=== PATIENT | female | born 1995 | race Caucasian/White ===

== ENCOUNTER 2017-09-08 10:10 | Emergency (ER) | payer MEDICAID ==
[2017-09-08 10:18] VITALS: BP 124/79
--- NOTE | 2017-09-08 10:53 | XRAY Report ---
EXAM: LEFT WRIST RADIOGRAPHY EXAM DATE: 09/08/2017 10:38 AM. CLINICAL HISTORY: Injury. COMPARISON: None. TECHNIQUE: 4 views. FINDINGS: Bones: No fractures or bone lesions. Joints: Normal. No subluxations. Soft Tissues: No soft tissue swelling. IMPRESSION: Negative wrist radiography. [facility] Referring Provider Line: [phone] SITE ID: [id number]
[2017-09-08] MEDS ORDERED: IBUPROFEN 600 MG TABLET PO STA (11:32)
--- NOTE | 2017-09-08 11:35 | ED Physician Documentation ---
PD HPI UPPER EXT INJURY - Stated complaint Stated Complaint: LEFT WRIST/GLF - Chief complaint Chief Complaint: Ext Problem - History obtained from History obtained from: Patient - History of Present Illness Location: Left, Wrist Type of injury: Fall Where injury occurred: Home Timing - onset: Yesterday Worsened by: Moving, Palpating, Other (Carrying her .) Associated symptoms: No: Weakness, Numbness, Swelling Similar symptoms before: Has not had sx before - Additonal information Additional information: The patient is a 22-year-old female who tripped over a baby's toy yesterday landing on outstretched left hand. She has had pain in her left wrist since that time, exacerbated when she picks up her baby. She denies any other injuries. She is right-hand dominant. Review of Systems Constitutional: denies: Fever Cardiac: denies: Chest pain / pressure Respiratory: denies: Dyspnea, Cough GI: denies: Nausea, Vomiting Skin: denies: Rash, Abrasion (s) Musculoskeletal: reports: Joint pain (Left wrist). 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 - Present Medications Home Medications: Ambulatory Orders Medication Instructions Recorded Confirmed Albuterol Sulfate [Proair Hfa 09/08/17 Inhaler] Bcp 09/08/17 Omeprazole 09/08/17 - Allergies Allergies/Adverse Reactions: Allergies Allergy/AdvReac Type Severity Reaction Status Date / Time amoxicillin Allergy Rash Verified 09/08/17 10:18 latex Allergy Rash Verified 09/08/17 10:18 lavender (Lavandula Allergy Unknown Verified 09/08/17 10:18 angustifolia) - Social History Does the pt smoke?: No Smoking Status: Never smoker PD ED PE NORMAL - Vitals Vital signs reviewed: Yes (normal) - General General: Alert and oriented X 3, Well developed/nourished - HEENT HEENT: Atraumatic - Neck Neck: No bony TTP - Respiratory Respiratory: No respiratory distress - Back Back: No spinal TTP - Derm Derm: No rash - Extremities Extremities: Other (Tenderness to palpation across the dorsum of the wrist both radially and ulnarly. No swelling, deformity, or ecchymosis. She is able to flex and extend as well as supinate and pronate without difficulty. Distal neurovascular is intact.) - Neuro Neuro: Alert and oriented X 3, No motor deficit, No sensory deficit Results - Vitals Vitals: Oxygen O2 Source Room air - Rads (name of study) left wrist Radiology: Prelim report reviewed, EMP read contemporaneously, See rad report ( No radiographic abnormality.) PD MEDICAL DECISION MAKING - ED course Complexity details: reviewed results, re-evaluated patient, considered differential, d/w patient, d/w family ED course: The patient's presentation is most consistent with left wrist sprain. There is no radiographic evidence of fracture or dislocation on x-ray. Treatment in the emergency department included administration of ibuprofen, 600 mg orally. I discussed with the patient and her family the expected course of injury, symptomatic treatment and outpatient follow-up, as well as potentially worrisome signs or symptoms that should prompt reevaluation in the emergency department. Departure - Departure Disposition: 01 Home, Self Care Clinical Impression: Left wrist sprain Qualifiers: Encounter type: initial encounter Qualified Code(s): S63.502A - Unspecified sprain of left wrist, initial encounter Condition: Stable Instructions: ED Sprain Wrist Follow-Up: Derek Reese MD [Primary Care Provider] - Comments: You can use Tylenol or ibuprofen if needed for discomfort. Let pain be your guide to activity level. Follow up with your primary physician if not improving within 1-2 weeks. Return to the emergency department if you develop increasing pain, or otherwise worsening symptoms. Discharge Date/Time: 09/08/17 11:52
== END 2017-09-08 11:52 | disposition home or self-care (01) ==
LOC: ED 10:10
DX: S63.502A Unspecified sprain of left wrist, initial encounter (principal); W18.09XA Striking against other object with subsequent fall, initial encounter; Y92.009 Unspecified place in unspecified non-institutional (private) residence as the place of occurrence of the external cause
CPT/HCPCS: 73110; 99282; 99283; A9270

== ENCOUNTER 2017-09-27 19:30 | Emergency (ER) | payer MEDICARE, MEDICAID ==
[2017-09-27 19:44] VITALS: BP 122/79
--- NOTE | 2017-09-27 20:02 | ED Physician Documentation ---
PD HPI Fall - Stated complaint Stated Complaint: FELL LT HAND/LEG - Chief complaint Chief Complaint: Ext Problem - History obtained from History obtained from: Patient - History of Present Illness Mechanism of injury: Tripped (over an object and landed onto left wrist, and struck left ankle on the object and twisted ankle as well. Pain with walking and pain with ROM of the wrist.) Fall distance: Standing position Where injury occurred: Home Injury(ies) location: Left Uppper Extremity (wrist), Left Lower Extremity (ankle ). 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 - Present Medications Home Medications: Ambulatory Orders Medication Instructions Recorded Confirmed Albuterol Sulfate [Proair Hfa 2 puffs INH Q4H PRN 09/08/17 Inhaler] Bcp 09/08/17 Omeprazole 20 mg PO DAILY 09/08/17 - Allergies Allergies/Adverse Reactions: Allergies Allergy/AdvReac Type Severity Reaction Status Date / Time amoxicillin Allergy Rash Verified 09/27/17 19:38 latex Allergy Rash Verified 09/27/17 19:38 lavender (Lavandula Allergy Unknown Verified 09/27/17 19:38 angustifolia) - Social History Does the pt smoke?: No Smoking Status: Never smoker PD ED PE NORMAL - Vitals Vital signs reviewed: Yes - General General: Alert and oriented X 3, No acute distress, Well developed/nourished - HEENT HEENT: Atraumatic - Neck Neck: Supple, no meningeal sign, No bony TTP - Back Back: No spinal TTP - Derm Derm: Normal color, Warm and dry - Extremities Extremities: Other (left wrist with some tenderness ulnar side soft tissue. No obvius deformity. Left ankle tender anterior and lateral. Pain with inversion stress but no laxity. Achilles is not tender. ) - Neuro Neuro: No motor deficit, No sensory deficit Results - Vitals Vitals: Vital Signs - 24 hr 09/27/17 19:33 Temperature 36.0 C L Heart Rate 109 H Respiratory 16 Rate Blood Pressure 122/79 O2 Saturation 100 Oxygen O2 Source Room air - Rads (name of study) werist left Radiology: Prelim report reviewed (no fractures) left ankle Radiology: Prelim report reviewed (no fractures. ) Departure - Departure Disposition: 01 Home, Self Care Clinical Impression: Wrist contusion Qualifiers: Encounter type: initial encounter Laterality: left Qualified Code(s): S60.212A - Contusion of left wrist, initial encounter Ankle sprain Qualifiers: Encounter type: initial encounter Involved ligament of ankle: other ligament Laterality: left Qualified Code(s): S93.492A - Sprain of other ligament of left ankle, initial encounter Condition: Stable Record reviewed to determine appropriate education?: Yes Instructions: ED Sprain Ankle Follow-Up: Derek Reese MD [Primary Care Provider] - Comments: Your x-rays appear normal. Use the ankle brace to support the ankle when up and around for the next few days to week until it is feeling better. Gentle use of the hand and wrist as needed. Tylenol or ibuprofen if needed for pains. Discharge Date/Time: 09/27/17 20:44
[2017-09-27] MEDS ORDERED: IBUPROFEN 600 MG TABLET PO STA (20:07)
--- NOTE | 2017-09-27 20:40 | XRAY Report ---
EXAM: LEFT WRIST RADIOGRAPHY EXAM DATE: 09/27/2017 08:13 PM. CLINICAL HISTORY: Fell and struck wrist as fell. COMPARISON: None. TECHNIQUE: 3 views. FINDINGS: Bones: Normal. No fractures or bone lesions. Joints: Normal. No subluxations. Soft Tissues: Normal. No soft tissue swelling. IMPRESSION: Normal wrist radiography. [facility] Referring Provider Line: [phone] SITE ID: [id number]
--- NOTE | 2017-09-27 20:40 | XRAY Preliminary Report ---
Exam: XR WRIST 3 VIEW LT IMPRESSION: Normal wrist radiography. [facility] SITE ID: [id number]
--- NOTE | 2017-09-27 20:42 | XRAY Preliminary Report ---
Exam: XR ANKLE 3 VIEW LT IMPRESSION: Normal ankle radiography. [facility] SITE ID: [id number]
--- NOTE | 2017-09-27 20:42 | XRAY Report ---
EXAM: LEFT ANKLE RADIOGRAPHY EXAM DATE: 09/27/2017 08:27 PM. CLINICAL HISTORY: Fell and struck/twisted ankle. COMPARISON: None. TECHNIQUE: 3 views. FINDINGS: Bones: Normal. No fractures or bone lesions. Joints: Normal. No effusion. No subluxations. The ankle mortise is normally aligned. Soft Tissues: Normal. No soft tissue swelling. IMPRESSION: Normal ankle radiography. [facility] Referring Provider Line: [phone] SITE ID: [id number]
== END 2017-09-27 20:44 | disposition home or self-care (01) ==
LOC: ED 19:30
DX: S60.212A Contusion of left wrist, initial encounter (principal); S93.492A Sprain of other ligament of left ankle, initial encounter; W01.0XXA Fall on same level from slipping, tripping and stumbling without subsequent striking against object, initial encounter; Y92.009 Unspecified place in unspecified non-institutional (private) residence as the place of occurrence of the external cause; K21.9 Gastro-esophageal reflux disease without esophagitis
CPT/HCPCS: 73110; 73610; 99283; A9270

== ENCOUNTER 2019-06-07 11:07 | Emergency (ER) | payer MEDICARE, MEDICAID ==
--- NOTE | 2019-06-07 12:13 | ED Physician Documentation ---
History of Present Illness - Stated complaint Stated Complaint: LT ARM PX - Chief complaint Chief Complaint: Ext Problem - Additonal information Additional information: This is a 24-year-old female who presents with left arm discomfort from a dog jumping on her. Patient states that they found a dog in the yard which they think is 1 of their neighbor's dog that ran away. Letter into their house and is very friendly dog but is also fairly large and while playing with it its pause and body landed on her left arm last night. Patient has been sore in the forearm and wrist since then. She states that she broke her wrist in the past so the arm always has a little bit of soreness/weakness. The dog did not bite her. 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 - Present Medications Home Medications: Ambulatory Orders Medication Instructions Recorded Confirmed Albuterol Sulfate [Proair Hfa 2 puffs INH Q4H PRN 09/08/17 Inhaler] Bcp 09/08/17 Omeprazole 20 mg PO DAILY 09/08/17 - Allergies Allergies/Adverse Reactions: Allergies Allergy/AdvReac Type Severity Reaction Status Date / Time amoxicillin Allergy Rash Verified 09/27/17 19:38 latex Allergy Rash Verified 09/27/17 19:38 lavender (Lavandula Allergy Unknown Verified 09/27/17 19:38 angustifolia) - Social History Does the pt smoke?: No Smoking Status: Never smoker Does the pt drink ETOH?: No Does the pt have substance abuse?: No PD ED PE NORMAL - Vitals Vital signs reviewed: Yes - General General: Alert and oriented X 3 - HEENT HEENT: Atraumatic - Neck Neck: Supple, no meningeal sign - Respiratory Respiratory: No respiratory distress - Abdomen Abdomen: Non distended - Extremities Extremities: Other (There is slight bruising and edema over the left distal radius and ulna, there is also some mild tenderness of the proximal forearm. Patient has good range of motion of her wrist and fingers with some mild discomfort. Sensation to light touch is intact. Capillary refill is brisk over all digits. There is no scaphoid tenderness. Upper arm is non-tender. No gross deformity) Results - Vitals Vitals: Vital Signs - 24 hr 06/07/19 11:14 Temperature 36.7 C Heart Rate 86 Respiratory 18 Rate Blood Pressure 133/83 H O2 Saturation 98 Oxygen O2 Source Room air - Rads (name of study) XR forearm L and wrist L Radiology: Other (No acute osseous abnormality) PD MEDICAL DECISION MAKING - ED course ED course: Patient presents with pain in her left arm after her dog jumped on her arm. She is neurovascularly intact. She was not bitten, she is not at risk for rabies exposure. She has good range of motion of her elbow and her wrist, she does have an area of bruising which likely represents a contusion. X-rays were obtained and show no fracture or dislocation. I discussed this result with the patient, recommended supportive care, and PCP follow-up if needed for continued symptoms. Also discussed being safe around dogs, particularly ones that she does not know. Patient agreed this plan was discharged home Departure - Departure Disposition: 01 Home, Self Care Clinical Impression: Contusion Qualifiers: Encounter type: initial encounter Contusion area: forearm Laterality: left Qualified Code(s): S50.12XA - Contusion of left forearm, initial encounter Condition: Good Instructions: ED Contusion Upper Ext Comments: You were seen today for some pain in your left arm. Your x-ray does not show signs of broken bones. It is likely that you bruised your forearm and potentially sprained your wrist. You may take Tylenol and ibuprofen, please rest ice and elevate your arm. If you have persistent pain which is not improving in 1 week, follow-up with your primary care provider for reexamination and consideration of repeat x-rays, occasionally there are very small fractures that are missed on the initial x-rays.
[2019-06-07] MEDS ORDERED: IBUPROFEN 600 MG TABLET PO STA (12:14)
[2019-06-07] MEDS ORDERED: ACETAMINOPHEN 325 MG TABLET PO STA (12:14)
--- NOTE | 2019-06-07 12:59 | XRAY Report ---
Reason: Pain from large dog jumping on her Procedure Date: 06/07/2019 Accession Number: [id number] / [id number] Procedure: XR - Wrist 2 View LT CPT Code: Final Report FULL RESULT: EXAM: LEFT WRIST RADIOGRAPHY EXAM DATE: 06/07/2019 12:34 PM. CLINICAL HISTORY: Pain from large dog jumping on her. COMPARISON: WRIST 3 VIEW LT 09/27/2017 8:13 PM. TECHNIQUE: 2 views. FINDINGS: Bones: Normal. No fractures or bone lesions. Joints: Normal. No subluxations. Soft Tissues: Normal. No soft tissue swelling. IMPRESSION: Normal wrist radiography. [facility]
--- NOTE | 2019-06-07 13:03 | XRAY Report ---
Reason: Pain from large dog jumping on arm Procedure Date: 06/07/2019 Accession Number: [id number] / [id number] Procedure: XR - Forearm LT CPT Code: Final Report FULL RESULT: EXAM: LEFT FOREARM RADIOGRAPHY EXAM DATE: 06/07/2019 12:34 PM. CLINICAL HISTORY: Pain from large dog jumping on arm. COMPARISON: XR FOREARM 2 VIEW 11/17/2010 3:41 PM WRIST 3 VIEW LT 09/27/2017 8:13 PM. TECHNIQUE: 2 views. FINDINGS: Bones: No fracture or bony destruction. Joints: Normal. No effusions or subluxations in the visualized wrist or elbow joints. Soft Tissues: Normal. No soft tissue swelling. IMPRESSION: Negative left forearm [facility]
[2019-06-07 13:17] VITALS: BP 134/82
== END 2019-06-07 13:30 | disposition home or self-care (01) ==
LOC: ED 11:07
DX: S50.12XA Contusion of left forearm, initial encounter (principal); W54.1XXA Struck by dog, initial encounter; Y93.89 Activity, other specified; Y92.009 Unspecified place in unspecified non-institutional (private) residence as the place of occurrence of the external cause
CPT/HCPCS: 73090; 73100; 99282; 99283; A9270

== ENCOUNTER 2020-09-25 12:54 | Outpatient (CLI) | payer MEDICARE, MEDICAID | END 2020-09-25 12:55 | disposition short-term general hospital (02) | LOC: EMS 12:54 | DX: O99.891 Other specified diseases and conditions complicating pregnancy (principal); R10.9 Unspecified abdominal pain; Z3A.30 30 weeks gestation of pregnancy | CPT/HCPCS: A0425; A0429 ==

== ENCOUNTER 2022-01-31 11:47 | Emergency (ER) | payer MEDICARE, MEDICAID ==
[2022-01-31 11:56] VITALS: BP 146/79
--- NOTE | 2022-01-31 12:15 | XRAY Report ---
PROCEDURE: Forearm LT INDICATIONS: Trauma TECHNIQUE: 2 views of the forearm were acquired. COMPARISON: None FINDINGS: Bones: No fractures or dislocations. No suspicious bony lesions. Soft tissues: No suspicious soft tissue calcifications or masses. IMPRESSION: No visualized acute fracture or dislocation. However, occult injury cannot be excluded. Recommend marj rt interval imaging follow-up in 7-10 days as clinically indicated for additional evaluation. Reviewed by: Lilia Meehan MD on 01/31/2022 12:14 PM PDT Approved by: Lilia Meehan MD on 01/31/2022 12:14 PM PDT Station ID: [id number]
[2022-01-31] MEDS ORDERED: IBUPROFEN 600 MG TABLET PO STA (12:21)
--- NOTE | 2022-01-31 12:24 | XRAY Report ---
PROCEDURE: Elbow 3 View LT INDICATIONS: Trauma TECHNIQUE: 3 views of the elbow were acquired. COMPARISON: X-ray forearm 06/07/2019 FINDINGS: Bones: No fractures or dislocations. No suspicious bony lesions. Soft tissues: No elbow joint effusion. No suspicious soft tissue calcifications. IMPRESSION: No visualized acute fracture or dislocation. However, occult injury cannot be excluded. Recommend marj rt interval imaging follow-up in 7-10 days as clinically indicated for additional evaluation. Reviewed by: Lilia Meehan MD on 01/31/2022 12:22 PM PDT Approved by: Lilia Meehan MD on 01/31/2022 12:22 PM PDT Station ID: [id number]
--- NOTE | 2022-01-31 12:24 | ED Physician Documentation ---
History of Present Illness - Stated complaint Stated Complaint: LT ARM PAIN - Chief complaint Chief Complaint: Trauma Ext - History obtained from History obtained from: Patient - History of Present Illness Timing: Yesterday Pain level max: 6 Pain level now: 5 - Additonal information Additional information: Patient is a 26-year-old female with a history of cerebral palsy. She presents to the emergency department stating she tripped and hit her forearm/elbow on her child's toy box yesterday. Has continued pain today. Has not taken anything for the pain. No numbness or tingling. No head, neck, back pain. No loss of consciousness. Worse with movement and palpation, nothing makes it better. 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 - Present Medications Home Medications: Ambulatory Orders Medication Instructions Recorded Confirmed Albuterol Sulfate [Proair Hfa 2 puffs INH Q4H PRN 09/08/17 Inhaler] Bcp 09/08/17 Omeprazole 20 mg PO DAILY 09/08/17 - Allergies Allergies/Adverse Reactions: Allergies Allergy/AdvReac Type Severity Reaction Status Date / Time amoxicillin Allergy Rash Verified 01/31/22 11:56 latex Allergy Rash Verified 01/31/22 11:56 lavender (Lavandula Allergy Unknown Verified 01/31/22 11:56 angustifolia) - Social History Does the pt smoke?: No Smoking Status: Never smoker Does the pt drink ETOH?: No Does the pt have substance abuse?: No PD ED PE NORMAL - Vitals Vital signs reviewed: Yes - General General: Alert and oriented X 3, No acute distress - HEENT HEENT: Moist mucous membranes - Neck Neck: Supple, no meningeal sign - Derm Derm: Warm and dry - Extremities Extremities: Other (L elbow - Full range of motion of the elbow, No pain with supination and pronation of the hand. She does have tenderness along the distal ulna. Mild contusion and ecchymosis here. Neurovascular intact. No bony tenderness otherwise.) - Neuro Neuro: Alert and oriented X 3 Results - Vitals Vitals: Vital Signs - 24 hr 01/31/22 11:53 Temperature 36.8 C Heart Rate 97 Respiratory 18 Rate Blood Pressure 146/79 H O2 Saturation 98 Oxygen O2 Source Room air - Rads (name of study) Left elbow xray Radiology: Final report received, EMP read contemporaneously, See rad report Left forearm x-ray Radiology: Final report received, EMP read contemporaneously, See rad report PD MEDICAL DECISION MAKING - ED course Complexity details: reviewed results, considered differential, d/w patient ED course: No acute findings on x-ray. Patient is using the arm freely. We will utilize Motrin and Tylenol at home. She does request a sling. Patient was informed not to use this for more than 2 to 3 days. Encouraged early range of motion of the elbow. Neurovascular intact. Patient counseled regarding signs and symptoms for which I believe and urgent re-evaluation would be necessary. Patient with good understanding of and agreement to plan and is comfortable going home at this time This document was made in part using voice recognition software. While efforts are made to proofread this document, sound alike and grammatical errors may occur. Departure - Departure Disposition: 01 Home, Self Care Clinical Impression: Contusion of elbow, left Qualifiers: Encounter type: initial encounter Qualified Code(s): S50.02XA - Contusion of left elbow, initial encounter Condition: Good Instructions: ED Contusion Elbow Follow-Up: Your,doctor in 1 week [Other] Comments: Do not wear the sling for longer than 2 to 3 days. Continue to gently move your elbow. This will improve over the next few days. You can use Motrin or Tylenol as needed for pain at home. Your x-rays do not show any fractures today. If you are still having pain in 1 week, please follow-up with your doctor for repeat examination
--- OUTSIDE RECORDS SUMMARY | 2022-01-31 12:35 | EXTERNAL MEDICAL SUMMARY RPT | Continuity of Care Document ---
:1995 Author Organization [facility] Address [address] [place] [address] Phone Allergies and Intolerances date description facility type (no date) Mild [facility] (unknown) (no date) NSAIDS (Non-Steroidal Anti-Inflamma [facility] (unknown) (no date) amoxicillin [facility] (unknown) (no date) lactose [facility] (unknown) (no date) latex [facility] (unknown) (no date) lavender (Lavandula angustifolia) [facility] (unknown) Encounters No information. Functional Status No information. Immunizations No information. Medications No information. Problems No information. Procedures date description facility [id number] General Physician [facility] Results/Labs test date author facility value unit interpret ation Result panel 1 (unknown) (no (unknown) (unknown) (no value) (units (unk nown) date) unknown) (unknown) (no (unknown) (unknown) Date of Service: (units (unknown) date) 11/15/21 unknown) (unknown) (no (unknown) (unknown) (no value) (units (unk nown) date) unknown) (unknown) (no (unknown) (unknown) 1 tab PO BID Qty: (units (unknown) date) 14 0RF unknown) (unknown) (no (unknown) (unknown) 1 tab PO DAILY (units (unknown) date) Qty: 90 4RF unknown) (unknown) (no (unknown) (unknown) 10 mg PO BID PRN (units (unknown) date) (Reason: Allergy unknown) Symptoms) 0RF (unknown) (no (unknown) (unknown) 2 puff INHALATION (units (unknown) date) Q4-6H 0RF unknown) (unknown) (no (unknown) (unknown) 325 mg PO DAILY (units (unknown) date) Qty: 30 0RF unknown) (unknown) (no (unknown) (unknown) 40 mg PO DAILY (units (unknown) date) Qty: 30 5RF unknown) (unknown) (no (unknown) (unknown) 5 mg PO Q4HR PRN (units (unknown) date) (Reason: Pain, unknown) Moderate (4-6)) Qty: 30 0RF (unknown) (no (unknown) (unknown) Allergies (units (unkn own) date) unknown) (unknown) (no (unknown) (unknown) Cancer (units (unkno wn) date) unknown) (unknown) (no (unknown) (unknown) Chronic (units (unkno wn) date) obstructive unknown) pulmonary disease, unspecified COPD type (unknown) (no (unknown) (unknown) Developmental (units ( unknown) date) delay unknown) (unknown) (no (unknown) (unknown) Emergency Report (units (unknown) date) unknown) (unknown) (no (unknown) (unknown) Essential (units (unkn own) date) hypertension unknown) (unknown) (no (unknown) (unknown) Family (units (unkno wn) date) estrangement unknown) (unknown) (no (unknown) (unknown) GI upset (units (unkno wn) date) unknown) (unknown) (no (unknown) (unknown) Home Medications (units (unknown) date) unknown) (unknown) (no (unknown) (unknown) [facility] (units (unknown) date) [address] unknown) [place] [address] (unknown) (no (unknown) (unknown) Label Comments: (units (unknown) date) unknown) (unknown) (no (unknown) (unknown) Mental health (units ( unknown) date) problem unknown) (unknown) (no (unknown) (unknown) Oxygen dependent (units (unknown) date) unknown) (unknown) (no (unknown) (unknown) Previous Rx's (units ( unknown) date) unknown) (unknown) (no (unknown) (unknown) Rx Instructions: (units (unknown) date) unknown) (unknown) (no (unknown) (unknown) Sleep apnea, (units (u nknown) date) unspecified type unknown) (unknown) (no (unknown) (unknown) Stop: 11/15/21 (units (unknown) date) 13:25 unknown) (unknown) (no (unknown) (unknown) Suicide attempt (units (unknown) date) unknown) (unknown) (no (unknown) (unknown) Take one tablet by (units (unknown) date) mouth daily. unknown) (unknown) (no (unknown) (unknown) Vital Signs - 8 hr (units (unknown) date) unknown) (unknown) (no (unknown) (unknown) patient has not (units (unknown) date) taken med unknown) (unknown) (no (unknown) (unknown) (no value) (units (unk nown) date) unknown) (unknown) (no (unknown) (unknown) albuterol sulfate (units (unknown) date) [Proventil HFA] 90 unknown) mcg/actuation HFA aerosol inhaler (unknown) (no (unknown) (unknown) ferrous sulfate (units (unknown) date) 325 mg (65 mg iron) unknown) Tablet (unknown) (no (unknown) (unknown) loratadine 10 mg (units (unknown) date) tablet unknown) (unknown) (no (unknown) (unknown) omeprazole 40 mg (units (unknown) date) capsule,delayed unknown) release(DR/EC) (unknown) (no (unknown) (unknown) oxycodone 5 mg (units (unknown) date) tablet unknown) (unknown) (no (unknown) (unknown) prenat.vits,sergey,mi (units (unknown) date) [id number] unknown) Tablet (unknown) (no (unknown) (unknown) sulfamethoxazole-t (units (unknown) date) rimethoprim 800-160 unknown) mg tablet (unknown) (no (unknown) (unknown) 11/15/21 (units (o wn) date) unknown) (unknown) (no (unknown) (unknown) Medication (units (k n) date) Instructions unknown) Recorded (unknown) (no (unknown) (unknown) Medication (units (k n) date) Instructions unknown) Recorded Confirmed (unknown) (no (unknown) (unknown) 11:24 (units (o wn) date) unknown) (unknown) (no (unknown) (unknown) [id number] (units (unkno wn) date) unknown) (unknown) (no (unknown) (unknown) ANTI-INFLAMMA] (units (unknown) date) unknown) (unknown) (no (unknown) (unknown) Acetaminophen (units ( unknown) date) (Acetaminophen 325 unknown) Mg Tablet) 975 mg PO NOW ONE (unknown) (no (unknown) (unknown) Acute blood loss (units (unknown) date) as cause of unknown) postoperative anemia () (unknown) (no (unknown) (unknown) Age/Sex: 26 / F (units (unknown) date) unknown) (unknown) (no (unknown) (unknown) Allergy/AdvReac (units (unknown) date) Type Severity unknown) Reaction Status Date / Time (unknown) (no (unknown) (unknown) Anesthesia (units (unk nown) date) unknown) (unknown) (no (unknown) (unknown) Anti-Inflamma (units ( unknown) date) unknown) (unknown) (no (unknown) (unknown) Asthma (2000) (units ( unknown) date) unknown) (unknown) (no (unknown) (unknown) Biliary colic (units ( unknown) date) () unknown) (unknown) (no (unknown) (unknown) Blood Pressure (units (unknown) date) 156/76 H 11/15/21 unknown) 11:24 (unknown) (no (unknown) (unknown) Blood Pressure (units (unknown) date) 156/76 H unknown) (unknown) (no (unknown) (unknown) Cerebral palsy (units (unknown) date) (1995) unknown) (unknown) (no (unknown) (unknown) Chief complaint: (units (unknown) date) Eye Problems unknown) (unknown) (no (unknown) (unknown) Cholecystectomy (units (unknown) date) planned () unknown) (unknown) (no (unknown) (unknown) Cholelithiasis (units (unknown) date) () unknown) (unknown) (no (unknown) (unknown) Contusion of left (units (unknown) date) arm unknown) (unknown) (no (unknown) (unknown) Course (units (unkno wn) date) unknown) (unknown) (no (unknown) (unknown) : 1995 (units (unknown) date) Acct:[id number] unknown) (unknown) (no (unknown) (unknown) Delivery by (units (un known) date) section of unknown) full-term (-06/27/17) (unknown) (no (unknown) (unknown) Departure (units (unkn own) date) unknown) (unknown) (no (unknown) (unknown) Discharge Plan (units (unknown) date) unknown) (unknown) (no (unknown) (unknown) Discontinued (units (u nknown) date) Medications unknown) (unknown) (no (unknown) (unknown) ER Physician: (units ( unknown) date) Sam,Hyma P.A-C unknown) (unknown) (no (unknown) (unknown) Ear pain () (units (unknown) date) unknown) (unknown) (no (unknown) (unknown) Esophagitis (units (un known) date) (06/08/15) unknown) (unknown) (no (unknown) (unknown) Exam (units (unkno wn) date) unknown) (unknown) (no (unknown) (unknown) Family History (units (unknown) date) (Reviewed 11/01/20 unknown) @ 00:23 by Millicent Dorman CNM) (unknown) (no (unknown) (unknown) Father Age: 53 (units (unknown) date) Cerebral palsy, unknown) unspecified type (unknown) (no (unknown) (unknown) Finger fracture (units (unknown) date) () unknown) (unknown) (no (unknown) (unknown) Finger fracture, (units (unknown) date) left () unknown) (unknown) (no (unknown) (unknown) General (units (unkno wn) date) unknown) (unknown) (no (unknown) (unknown) Grandfather (units (un known) date) Cerebral unknown) palsy, unspecified type (unknown) (no (unknown) (unknown) Grandfather Age: (units (unknown) date) 78 Emphysema, unknown) unspecified (unknown) (no (unknown) (unknown) Grandmother (units (un known) date) Diabetes unknown) mellitus (unknown) (no (unknown) (unknown) Grandmother (units (un known) date) Family unknown) estrangement (unknown) (no (unknown) (unknown) HPI - Eye Problem (units (unknown) date) unknown) (unknown) (no (unknown) (unknown) History of (units (unk nown) date) unknown) () (unknown) (no (unknown) (unknown) History of (units (unk nown) date) cholecystectomy unknown) (-2017) (unknown) (no (unknown) (unknown) History of (units (unk nown) date) placement of ear unknown) tubes (unknown) (no (unknown) (unknown) History of third (units (unknown) date) molar tooth unknown) extraction (2014) (unknown) (no (unknown) (unknown) Derek Reese MD (units (unknown) date) [Primary Care unknown) Provider] - (unknown) (no (unknown) (unknown) Initial Vital (units ( unknown) date) Signs unknown) (unknown) (no (unknown) (unknown) Initial Vital (units ( unknown) date) Signs: unknown) (unknown) (no (unknown) (unknown) Left wrist sprain (units (unknown) date) () unknown) (unknown) (no (unknown) (unknown) Medical History (units (unknown) date) (Reviewed 11/01/20 unknown) @ 00:23 by Millicent Dorman CNM) (unknown) (no (unknown) (unknown) Mode of arrival: (units (unknown) date) Ambulatory unknown) (unknown) (no (unknown) (unknown) Mother Age: 47 (units (unknown) date) Essential unknown) hypertension (unknown) (no (unknown) (unknown) NSAIDS (units (unkno wn) date) (Non-Steroidal unknown) Allergy Mild Hives Verified 10/28/20 13:50 (unknown) (no (unknown) (unknown) No Action (units (unkn own) date) unknown) (unknown) (no (unknown) (unknown) Ordered: (units (unkno wn) date) unknown) (unknown) (no (unknown) (unknown) Orders (units (unkno wn) date) unknown) (unknown) (no (unknown) (unknown) Patient History (units (unknown) date) unknown) (unknown) (no (unknown) (unknown) Patient: (units (unkno wn) date) Jamari Simmons unknown) MR#: [id number] (unknown) (no (unknown) (unknown) Prescriptions: (units (unknown) date) unknown) (unknown) (no (unknown) (unknown) Pulse Oximetry (units (unknown) date) 100 11/15/21 unknown) 11:24 (unknown) (no (unknown) (unknown) Pulse Oximetry 100 (units (unknown) date) unknown) (unknown) (no (unknown) (unknown) Pulse Rate 100 H (units (unknown) date) 11/15/21 11:24 unknown) (unknown) (no (unknown) (unknown) Pulse Rate 100 H (units (unknown) date) unknown) (unknown) (no (unknown) (unknown) RLS (restless legs (units (unknown) date) syndrome) (2013) unknown) (unknown) (no (unknown) (unknown) Referrals: (units (unk nown) date) unknown) (unknown) (no (unknown) (unknown) Reflux gastritis (units (unknown) date) (-2016) unknown) (unknown) (no (unknown) (unknown) Related Data (units (u nknown) date) unknown) (unknown) (no (unknown) (unknown) Respiratory Rate (units (unknown) date) 18 11/15/21 11:24 unknown) (unknown) (no (unknown) (unknown) Respiratory Rate (units (unknown) date) 18 unknown) (unknown) (no (unknown) (unknown) Rib sprain (units (unk nown) date) unknown) (unknown) (no (unknown) (unknown) Shoulder pain (units ( unknown) date) (2012) unknown) (unknown) (no (unknown) (unknown) Signed By: (units (unk nown) date) unknown) (unknown) (no (unknown) (unknown) Sister Age: 26 (units (unknown) date) Cerebral palsy, unknown) unspecified type (unknown) (no (unknown) (unknown) Smoking Status: (units (unknown) date) Never smoker unknown) (unknown) (no (unknown) (unknown) Smoking Status: (units (unknown) date) Never smoker unknown) (unknown) (no (unknown) (unknown) Social History (units (unknown) date) (Reviewed 11/01/20 unknown) @ 00:23 by Millicent Elliott CNM) (unknown) (no (unknown) (unknown) Source: patient (units (unknown) date) unknown) (unknown) (no (unknown) (unknown) Sprain of left (units (unknown) date) hand unknown) (unknown) (no (unknown) (unknown) Stated complaint: (units (unknown) date) Pain in left eye unknown) (unknown) (no (unknown) (unknown) Substance Use (units ( unknown) date) Type: does not use unknown) (unknown) (no (unknown) (unknown) Surgical History (units (unknown) date) (Reviewed 11/01/20 unknown) @ 00:23 by Millicent Dorman CNM) (unknown) (no (unknown) (unknown) Time Seen by (units (u nknown) date) Provider: 11/15/21 unknown) 12:55 (unknown) (no (unknown) (unknown) Upper respiratory (units (unknown) date) infection unknown) () (unknown) (no (unknown) (unknown) Vital Signs (units (un known) date) unknown) (unknown) (no (unknown) (unknown) Vital signs: (units (u nknown) date) unknown) (unknown) (no (unknown) (unknown) Vomiting (units (unkno wn) date) unknown) (unknown) (no (unknown) (unknown) [LAVENDER] (units (unk nown) date) unknown) (unknown) (no (unknown) (unknown) [NSAIDS (units (unkno wn) date) (NON-STEROIDAL unknown) (unknown) (no (unknown) (unknown) aerosol inhaler (units (unknown) date) (Proventil HFA) unknown) (unknown) (no (unknown) (unknown) albuterol sulfate (units (unknown) date) 90 mcg/actuation 2 unknown) puff INHALATION Q4-6H 11/12/20 11/12/20 (unknown) (no (unknown) (unknown) alcohol intake (units (unknown) date) frequency: 0-2 unknown) drinks per day (unknown) (no (unknown) (unknown) alcohol intake: (units (unknown) date) never unknown) (unknown) (no (unknown) (unknown) amoxicillin (units (un known) date) Allergy unknown) Intermediate RASH Verified 10/28/20 13:50 (unknown) (no (unknown) (unknown) angustifolia) (units ( unknown) date) unknown) (unknown) (no (unknown) (unknown) ferrous sulfate (units (unknown) date) 325 mg (65 mg 325 unknown) mg PO DAILY #30 tab 11/13/20 (unknown) (no (unknown) (unknown) household members: (units (unknown) date) family unknown) (unknown) (no (unknown) (unknown) iron) tablet (units (u nknown) date) unknown) (unknown) (no (unknown) (unknown) lactose AdvReac (units (unknown) date) Intermediate unknown) Diarrhea, Verified 10/28/20 13:50 (unknown) (no (unknown) (unknown) latex Allergy Mild (units (unknown) date) ITCHY RASH Verified unknown) 10/28/20 13:50 (unknown) (no (unknown) (unknown) lavender (units (unkno wn) date) (Lavandula Allergy unknown) Mild rash Verified 10/28/20 13:50 (unknown) (no (unknown) (unknown) loratadine 10 mg (units (unknown) date) tablet 10 mg PO BID unknown) PRN 03/14/19 11/12/20 (unknown) (no (unknown) (unknown) marital status: (units (unknown) date) unmarried,single unknown) (unknown) (no (unknown) (unknown) mg-trimethoprim (units (unknown) date) 160 mg tablet unknown) (unknown) (no (unknown) (unknown) omeprazole 40 mg (units (unknown) date) capsule,delayed 40 unknown) mg PO DAILY #30 cap 06/10/20 (unknown) (no (unknown) (unknown) oxycodone 5 mg (units (unknown) date) tablet 5 mg PO Q4HR unknown) PRN #30 tab 11/17/20 (unknown) (no (unknown) (unknown) prenat.vits,sergey,mi (units (unknown) date) [id number] 1 tab unknown) PO DAILY #90 tab 04/30/20 (unknown) (no (unknown) (unknown) release (units (unkno wn) date) unknown) (unknown) (no (unknown) (unknown) substance use (units ( unknown) date) type: does not use unknown) (unknown) (no (unknown) (unknown) sulfamethoxazole (units (unknown) date) 800 1 tab PO BID unknown) #14 tab 11/20/20 Result panel 2 (unknown) (no (unknown) (unknown) (no value) (units (unk nown) date) unknown) (unknown) (no (unknown) (unknown) Date of Service: (units (unknown) date) 11/15/21 unknown) (unknown) (no (unknown) (unknown) (no value) (units (unk nown) date) unknown) (unknown) (no (unknown) (unknown) 1 tab PO BID Qty: (units (unknown) date) 14 0RF unknown) (unknown) (no (unknown) (unknown) 1 tab PO DAILY (units (unknown) date) Qty: 90 4RF unknown) (unknown) (no (unknown) (unknown) 10 mg PO BID PRN (units (unknown) date) (Reason: Allergy unknown) Symptoms) 0RF (unknown) (no (unknown) (unknown) 2 puff INHALATION (units (unknown) date) Q4-6H 0RF unknown) (unknown) (no (unknown) (unknown) 325 mg PO DAILY (units (unknown) date) Qty: 30 0RF unknown) (unknown) (no (unknown) (unknown) 40 mg PO DAILY (units (unknown) date) Qty: 30 5RF unknown) (unknown) (no (unknown) (unknown) 5 mg PO Q4HR PRN (units (unknown) date) (Reason: Pain, unknown) Moderate (4-6)) Qty: 30 0RF (unknown) (no (unknown) (unknown) Allergies (units (unkn own) date) unknown) (unknown) (no (unknown) (unknown) Cancer (units (unkno wn) date) unknown) (unknown) (no (unknown) (unknown) Chronic (units (unkno wn) date) obstructive unknown) pulmonary disease, unspecified COPD type (unknown) (no (unknown) (unknown) Developmental (units ( unknown) date) delay unknown) (unknown) (no (unknown) (unknown) Emergency Report (units (unknown) date) unknown) (unknown) (no (unknown) (unknown) Essential (units (unkn own) date) hypertension unknown) (unknown) (no (unknown) (unknown) Family (units (unkno wn) date) estrangement unknown) (unknown) (no (unknown) (unknown) GI upset (units (unkno wn) date) unknown) (unknown) (no (unknown) (unknown) Home Medications (units (unknown) date) unknown) (unknown) (no (unknown) (unknown) [facility] (units (unknown) date) [address] unknown) [place] [address] (unknown) (no (unknown) (unknown) Label Comments: (units (unknown) date) unknown) (unknown) (no (unknown) (unknown) Mental health (units ( unknown) date) problem unknown) (unknown) (no (unknown) (unknown) Oxygen dependent (units (unknown) date) unknown) (unknown) (no (unknown) (unknown) Previous Rx's (units ( unknown) date) unknown) (unknown) (no (unknown) (unknown) Rx Instructions: (units (unknown) date) unknown) (unknown) (no (unknown) (unknown) Sleep apnea, (units (u nknown) date) unspecified type unknown) (unknown) (no (unknown) (unknown) Stop: 11/15/21 (units (unknown) date) 13:25 unknown) (unknown) (no (unknown) (unknown) Suicide attempt (units (unknown) date) unknown) (unknown) (no (unknown) (unknown) Take one tablet by (units (unknown) date) mouth daily. unknown) (unknown) (no (unknown) (unknown) Vital Signs - 8 hr (units (unknown) date) unknown) (unknown) (no (unknown) (unknown) patient has not (units (unknown) date) taken med unknown) (unknown) (no (unknown) (unknown) (no value) (units (unk nown) date) unknown) (unknown) (no (unknown) (unknown) albuterol sulfate (units (unknown) date) [Proventil HFA] 90 unknown) mcg/actuation HFA aerosol inhaler (unknown) (no (unknown) (unknown) ferrous sulfate (units (unknown) date) 325 mg (65 mg iron) unknown) Tablet (unknown) (no (unknown) (unknown) loratadine 10 mg (units (unknown) date) tablet unknown) (unknown) (no (unknown) (unknown) omeprazole 40 mg (units (unknown) date) capsule,delayed unknown) release(DR/EC) (unknown) (no (unknown) (unknown) oxycodone 5 mg (units (unknown) date) tablet unknown) (unknown) (no (unknown) (unknown) prenat.vits,sergey,mi (units (unknown) date) [id number] unknown) Tablet (unknown) (no (unknown) (unknown) sulfamethoxazole-t (units (unknown) date) rimethoprim 800-160 unknown) mg tablet (unknown) (no (unknown) (unknown) 11/15/21 (units (unkno wn) date) unknown) (unknown) (no (unknown) (unknown) Medication (units (unk nown) date) Instructions unknown) Recorded (unknown) (no (unknown) (unknown) Medication (units (unk nown) date) Instructions unknown) Recorded Confirmed (unknown) (no (unknown) (unknown) Patient describes (units (unknown) date) the pain as sharp unknown) and pulsatile. Patient denies any fevers, (unknown) (no (unknown) (unknown) 11:24 (units (unkno wn) date) unknown) (unknown) (no (unknown) (unknown) 26-year-old female (units (unknown) date) with a past medical unknown) history of cerebral palsy presents to the (unknown) (no (unknown) (unknown) [id number] (units (unkno wn) date) unknown) (unknown) (no (unknown) (unknown) ANTI-INFLAMMA] (units (unknown) date) unknown) (unknown) (no (unknown) (unknown) Acetaminophen (units ( unknown) date) (Acetaminophen 325 unknown) Mg Tablet) 975 mg PO NOW ONE (unknown) (no (unknown) (unknown) Acute blood loss (units (unknown) date) as cause of unknown) postoperative anemia (-06/2017) (unknown) (no (unknown) (unknown) Age/Sex: 26 / F (units (unknown) date) unknown) (unknown) (no (unknown) (unknown) Allergic/Immunolog (units (unknown) date) ic unknown) (unknown) (no (unknown) (unknown) Allergic/Immunolog (units (unknown) date) ic: Denies unknown) urticaria, Denies throat swelling and Denies (unknown) (no (unknown) (unknown) Allergy/AdvReac (units (unknown) date) Type Severity unknown) Reaction Status Date / Time (unknown) (no (unknown) (unknown) Anesthesia (units (unk nown) date) unknown) (unknown) (no (unknown) (unknown) Anti-Inflamma (units ( unknown) date) unknown) (unknown) (no (unknown) (unknown) Appearance: (units (un known) date) grossly normal unknown) (unknown) (no (unknown) (unknown) Asthma (2000) (units ( unknown) date) unknown) (unknown) (no (unknown) (unknown) Biliary colic (units ( unknown) date) () unknown) (unknown) (no (unknown) (unknown) Blood Pressure (units (unknown) date) 156/76 H 11/15/21 unknown) 11:24 (unknown) (no (unknown) (unknown) Blood Pressure (units (unknown) date) 156/76 H unknown) (unknown) (no (unknown) (unknown) Cardio (units (unkno wn) date) unknown) (unknown) (no (unknown) (unknown) Cardiovascular (units (unknown) date) unknown) (unknown) (no (unknown) (unknown) Cardiovascular: (units (unknown) date) Denies chest pain, unknown) Denies irregular heart rhythm, Denies (unknown) (no (unknown) (unknown) Cerebral palsy (units (unknown) date) (1995) unknown) (unknown) (no (unknown) (unknown) Chief complaint: (units (unknown) date) Eye Problems unknown) (unknown) (no (unknown) (unknown) Cholecystectomy (units (unknown) date) planned () unknown) (unknown) (no (unknown) (unknown) Cholelithiasis (units (unknown) date) () unknown) (unknown) (no (unknown) (unknown) Comments: (units (unkn own) date) unknown) (unknown) (no (unknown) (unknown) Conjunctivae: (units ( unknown) date) conjunctivae normal unknown) (unknown) (no (unknown) (unknown) Const (units (unkno wn) date) unknown) (unknown) (no (unknown) (unknown) Constitutional (units (unknown) date) unknown) (unknown) (no (unknown) (unknown) Constitutional: (units (unknown) date) Denies chills, unknown) Denies fatigue, Denies fever(s), Denies frequent (unknown) (no (unknown) (unknown) Contusion of left (units (unknown) date) arm unknown) (unknown) (no (unknown) (unknown) Course (units (unkno wn) date) unknown) (unknown) (no (unknown) (unknown) : 1995 (units (unknown) date) Acct:[id number] unknown) (unknown) (no (unknown) (unknown) Delivery by (units (un known) date) section of unknown) full-term (-06/27/17) (unknown) (no (unknown) (unknown) Denies frequent (units (unknown) date) falls, Denies loss unknown) of vision, Denies numbness, Denies tingling (unknown) (no (unknown) (unknown) Denies numbness (units (unknown) date) and Denies tingling unknown) (unknown) (no (unknown) (unknown) Departure (units (unkn own) date) unknown) (unknown) (no (unknown) (unknown) Discharge Plan (units (unknown) date) unknown) (unknown) (no (unknown) (unknown) Discontinued (units (u nknown) date) Medications unknown) (unknown) (no (unknown) (unknown) ED with 2 days of (units (unknown) date) left-sided eye unknown) pain. Patient states that the pain started (unknown) (no (unknown) (unknown) ED with 2 days of (units (unknown) date) left-sided eye unknown) pain. Suspicion for ocular migraine versus (unknown) (no (unknown) (unknown) ENT (units (unkno wn) date) unknown) (unknown) (no (unknown) (unknown) EOM: EOM intact (units (unknown) date) bilaterally unknown) (unknown) (no (unknown) (unknown) ER Physician: (units ( unknown) date) Sam,Hyma P.A-C unknown) (unknown) (no (unknown) (unknown) Ear pain (-2018) (units (unknown) date) unknown) (unknown) (no (unknown) (unknown) Ears, Nose, Mouth, (units (unknown) date) and Throat: Denies unknown) change in voice, Denies dizziness, Denies (unknown) (no (unknown) (unknown) Ears: hearing (units ( unknown) date) grossly normal unknown) bilaterally (unknown) (no (unknown) (unknown) Effort + (units (unkno wn) date) Inspection: normal unknown) respiratory effort (unknown) (no (unknown) (unknown) Endocrine (units (unkn own) date) unknown) (unknown) (no (unknown) (unknown) Endocrine: Denies (units (unknown) date) fatigue, Denies unknown) flushing and Denies palpitations (unknown) (no (unknown) (unknown) Esophagitis (units (un known) date) (06/08/15) unknown) (unknown) (no (unknown) (unknown) Exam (units (unkno wn) date) unknown) (unknown) (no (unknown) (unknown) Eyelids: eyelids (units (unknown) date) normal unknown) (unknown) (no (unknown) (unknown) Eyes (units (unkno wn) date) unknown) (unknown) (no (unknown) (unknown) Eyes: Denies (units (u nknown) date) change in vision, unknown) Denies eye discharge, Denies irritation, Denies (unknown) (no (unknown) (unknown) Face and sinus: (units (unknown) date) normal facial exam unknown) (unknown) (no (unknown) (unknown) Family History (units (unknown) date) (Reviewed 11/15/21 unknown) @ 13:35 by Jacinda Vargas PA-C) (unknown) (no (unknown) (unknown) Father Age: 54 (units (unknown) date) Cerebral palsy, unknown) unspecified type (unknown) (no (unknown) (unknown) Finger fracture (units (unknown) date) () unknown) (unknown) (no (unknown) (unknown) Finger fracture, (units (unknown) date) left () unknown) (unknown) (no (unknown) (unknown) Gastrointestinal (units (unknown) date) unknown) (unknown) (no (unknown) (unknown) Gastrointestinal: (units (unknown) date) Denies abdominal unknown) pain, Denies change in bowel habits, Denies (unknown) (no (unknown) (unknown) General (units (unkno wn) date) unknown) (unknown) (no (unknown) (unknown) General: Yes (units (u nknown) date) appearance normal, unknown) both eyes and all related structures (unknown) (no (unknown) (unknown) General: (units (unkno wn) date) cooperative, unknown) healthy appearing and comfortable (unknown) (no (unknown) (unknown) General: no rashes (units (unknown) date) or lesions noted unknown) (unknown) (no (unknown) (unknown) General: patient (units (unknown) date) alert, patient unknown) awake and patient oriented x3 (unknown) (no (unknown) (unknown) Genitourinary (units ( unknown) date) unknown) (unknown) (no (unknown) (unknown) Genitourinary: (units (unknown) date) Denies hematuria, unknown) Denies flank pain, Denies urinary incontinence (unknown) (no (unknown) (unknown) Grandfather (units (un known) date) Cerebral unknown) palsy, unspecified type (unknown) (no (unknown) (unknown) Grandfather Age: (units (unknown) date) 79 Emphysema, unknown) unspecified (unknown) (no (unknown) (unknown) Grandmother (units (un known) date) Diabetes unknown) mellitus (unknown) (no (unknown) (unknown) Grandmother (units (un known) date) Family unknown) estrangement (unknown) (no (unknown) (unknown) HENMT (units (unkno wn) date) unknown) (unknown) (no (unknown) (unknown) HPI - Eye Problem (units (unknown) date) unknown) (unknown) (no (unknown) (unknown) HPI Narrative: (units (unknown) date) unknown) (unknown) (no (unknown) (unknown) Head: normal to (units (unknown) date) inspection and unknown) normocephalic (unknown) (no (unknown) (unknown) Hematologic/Lympha (units (unknown) date) tic unknown) (unknown) (no (unknown) (unknown) Hematologic/Lympha (units (unknown) date) tic: Denies easy unknown) bruising (unknown) (no (unknown) (unknown) History of (units (unk nown) date) unknown) (-06/2017) (unknown) (no (unknown) (unknown) History of Present (units (unknown) date) Illness unknown) (unknown) (no (unknown) (unknown) History of (units (unk nown) date) cholecystectomy unknown) (-2017) (unknown) (no (unknown) (unknown) History of (units (unk nown) date) placement of ear unknown) tubes (unknown) (no (unknown) (unknown) History of third (units (unknown) date) molar tooth unknown) extraction (2014) (unknown) (no (unknown) (unknown) Derek Reese MD (units (unknown) date) [Primary Care unknown) Provider] - (unknown) (no (unknown) (unknown) Initial Vital (units ( unknown) date) Signs unknown) (unknown) (no (unknown) (unknown) Initial Vital (units ( unknown) date) Signs: unknown) (unknown) (no (unknown) (unknown) Integumentary/[place] (units (unknown) date) sts unknown) (unknown) (no (unknown) (unknown) Left eye pain (units ( unknown) date) unknown) (unknown) (no (unknown) (unknown) Left wrist sprain (units (unknown) date) () unknown) (unknown) (no (unknown) (unknown) MDM - Eye Problem (units (unknown) date) unknown) (unknown) (no (unknown) (unknown) MDM Narrative (units ( unknown) date) unknown) (unknown) (no (unknown) (unknown) Medical History (units (unknown) date) (Reviewed 11/15/21 unknown) @ 13:35 by Jacinda Vargas PA-C) (unknown) (no (unknown) (unknown) Medical decision (units (unknown) date) making narrative: unknown) (unknown) (no (unknown) (unknown) Mental Status: (units (unknown) date) mental status unknown) grossly normal (unknown) (no (unknown) (unknown) Mode of arrival: (units (unknown) date) Ambulatory unknown) (unknown) (no (unknown) (unknown) Mother Age: 48 (units (unknown) date) Essential unknown) hypertension (unknown) (no (unknown) (unknown) Musculoskeletal (units (unknown) date) unknown) (unknown) (no (unknown) (unknown) Musculoskeletal: (units (unknown) date) Denies back pain, unknown) Denies muscle weakness, Denies neck pain, (unknown) (no (unknown) (unknown) NSAIDS (units (unkno wn) date) (Non-Steroidal unknown) Allergy Mild Hives Verified 10/28/20 13:50 (unknown) (no (unknown) (unknown) Neck (units (unkno wn) date) unknown) (unknown) (no (unknown) (unknown) Neck: normal (units (u nknown) date) visual inspection, unknown) full ROM and no meningeal signs (unknown) (no (unknown) (unknown) Neuro (units (unkno wn) date) unknown) (unknown) (no (unknown) (unknown) Neurologic (units (unk nown) date) unknown) (unknown) (no (unknown) (unknown) Neurologic: Denies (units (unknown) date) behavioral changes, unknown) Denies confusion, Denies dizziness, (unknown) (no (unknown) (unknown) No Action (units (unkn own) date) unknown) (unknown) (no (unknown) (unknown) Nose: external (units (unknown) date) nose normal unknown) (unknown) (no (unknown) (unknown) Ordered: (units (unkno wn) date) unknown) (unknown) (no (unknown) (unknown) Orders (units (unkno wn) date) unknown) (unknown) (no (unknown) (unknown) Patient History (units (unknown) date) unknown) (unknown) (no (unknown) (unknown) Patient: (units (unkno wn) date) Jamari Simmons unknown) MR#: [id number] (unknown) (no (unknown) (unknown) Prescriptions: (units (unknown) date) unknown) (unknown) (no (unknown) (unknown) Psych (units (unkno wn) date) unknown) (unknown) (no (unknown) (unknown) Psychiatric (units (un known) date) unknown) (unknown) (no (unknown) (unknown) Psychiatric: Denies (units (unknown) date) anxiety, Denies unknown) behavioral changes, Denies confusion, Denies (unknown) (no (unknown) (unknown) Pulse Oximetry (units (unknown) date) 100 11/15/21 unknown) 11:24 (unknown) (no (unknown) (unknown) Pulse Oximetry 100 (units (unknown) date) unknown) (unknown) (no (unknown) (unknown) Pulse Rate 100 H (units (unknown) date) 11/15/21 11:24 unknown) (unknown) (no (unknown) (unknown) Pulse Rate 100 H (units (unknown) date) unknown) (unknown) (no (unknown) (unknown) Pupils: PERRL (units ( unknown) date) unknown) (unknown) (no (unknown) (unknown) RLS (restless legs (units (unknown) date) syndrome) (2013) unknown) (unknown) (no (unknown) (unknown) ROS Unobtainable: (units (unknown) date) All systems unknown) reviewed + are unremarkable except as noted in HPI (unknown) (no (unknown) (unknown) Rate: regular rate (units (unknown) date) unknown) (unknown) (no (unknown) (unknown) Referrals: (units (unk nown) date) unknown) (unknown) (no (unknown) (unknown) Reflux gastritis (units (unknown) date) (-2016) unknown) (unknown) (no (unknown) (unknown) Related Data (units (u nknown) date) unknown) (unknown) (no (unknown) (unknown) Resp (units (unkno wn) date) unknown) (unknown) (no (unknown) (unknown) Respiratory (units (un known) date) unknown) (unknown) (no (unknown) (unknown) Respiratory Rate (units (unknown) date) 18 11/15/21 11:24 unknown) (unknown) (no (unknown) (unknown) Respiratory Rate (units (unknown) date) 18 unknown) (unknown) (no (unknown) (unknown) Respiratory: Denies (units (unknown) date) cough, Denies unknown) dyspnea, Denies dyspnea on exertion and Denies (unknown) (no (unknown) (unknown) Review of Systems (units (unknown) date) unknown) (unknown) (no (unknown) (unknown) Rib sprain (units (unk nown) date) unknown) (unknown) (no (unknown) (unknown) Sclera: sclerae (units (unknown) date) normal unknown) (unknown) (no (unknown) (unknown) Shoulder pain (units ( unknown) date) (2013) unknown) (unknown) (no (unknown) (unknown) Signed By: (units (unk nown) date) unknown) (unknown) (no (unknown) (unknown) Sister Age: 27 (units (unknown) date) Cerebral palsy, unknown) unspecified type (unknown) (no (unknown) (unknown) Skin (units (unkno wn) date) unknown) (unknown) (no (unknown) (unknown) Skin/Breast: (units (u nknown) date) Denies pruritus, unknown) Denies erythema, Denies rash and Denies wounds (unknown) (no (unknown) (unknown) Smoking Status: (units (unknown) date) Never smoker unknown) (unknown) (no (unknown) (unknown) Smoking Status: (units (unknown) date) Never smoker unknown) (unknown) (no (unknown) (unknown) Social History (units (unknown) date) (Reviewed 11/15/21 unknown) @ 13:35 by Jacinda Vargas PA-C) (unknown) (no (unknown) (unknown) Source: patient (units (unknown) date) unknown) (unknown) (no (unknown) (unknown) Sprain of left (units (unknown) date) hand unknown) (unknown) (no (unknown) (unknown) Stated complaint: (units (unknown) date) Pain in left eye unknown) (unknown) (no (unknown) (unknown) Substance Use (units ( unknown) date) Type: does not use unknown) (unknown) (no (unknown) (unknown) Surgical History (units (unknown) date) (Reviewed 11/15/21 unknown) @ 13:35 by Jacinda Vargas PA-C) (unknown) (no (unknown) (unknown) Time Seen by (units (u nknown) date) Provider: 11/15/21 unknown) 12:55 (unknown) (no (unknown) (unknown) Upper respiratory (units (unknown) date) infection unknown) () (unknown) (no (unknown) (unknown) Vital Signs (units (un known) date) unknown) (unknown) (no (unknown) (unknown) Vital signs: (units (u nknown) date) unknown) (unknown) (no (unknown) (unknown) Vomiting (units (unkno wn) date) unknown) (unknown) (no (unknown) (unknown) [LAVENDER] (units (unk nown) date) unknown) (unknown) (no (unknown) (unknown) [NSAIDS (units (unkno wn) date) (NON-STEROIDAL unknown) (unknown) (no (unknown) (unknown) aerosol inhaler (units (unknown) date) (Proventil HFA) unknown) (unknown) (no (unknown) (unknown) albuterol sulfate (units (unknown) date) 90 mcg/actuation 2 unknown) puff INHALATION Q4-6H 11/12/20 11/12/20 (unknown) (no (unknown) (unknown) alcohol intake (units (unknown) date) frequency: 0-2 unknown) drinks per day (unknown) (no (unknown) (unknown) alcohol intake: (units (unknown) date) never unknown) (unknown) (no (unknown) (unknown) amoxicillin (units (un known) date) Allergy unknown) Intermediate RASH Verified 10/28/20 13:50 (unknown) (no (unknown) (unknown) and Denies (units (unk nown) date) orthopnea unknown) (unknown) (no (unknown) (unknown) and Denies urinary (units (unknown) date) urgency unknown) (unknown) (no (unknown) (unknown) and Denies (units (unk nown) date) weakness unknown) (unknown) (no (unknown) (unknown) and below (units (unkn own) date) unknown) (unknown) (no (unknown) (unknown) angustifolia) (units ( unknown) date) unknown) (unknown) (no (unknown) (unknown) appointment for (units (unknown) date) 11/18/2021 to be unknown) evaluated for corrective eyeglasses. Patient (unknown) (no (unknown) (unknown) chills, vision (units (unknown) date) changes, nausea, unknown) vomiting, headache, eye discharge. Patient (unknown) (no (unknown) (unknown) corrective lenses (units (unknown) date) since she did not unknown) have the money for it. (unknown) (no (unknown) (unknown) denies history of (units (unknown) date) migraines/headaches unknown) . Patient has a history of cerebral palsy (unknown) (no (unknown) (unknown) depression, Denies (units (unknown) date) homicidal ideation unknown) and Denies suicidal ideation (unknown) (no (unknown) (unknown) diarrhea, Denies (units (unknown) date) nausea and Denies unknown) vomiting (unknown) (no (unknown) (unknown) falls, Denies (units ( unknown) date) lethargy and Denies unknown) weakness (unknown) (no (unknown) (unknown) ferrous sulfate (units (unknown) date) 325 mg (65 mg 325 unknown) mg PO DAILY #30 tab 11/13/20 (unknown) (no (unknown) (unknown) household members: (units (unknown) date) family unknown) (unknown) (no (unknown) (unknown) iron) tablet (units (u nknown) date) unknown) (unknown) (no (unknown) (unknown) lactose AdvReac (units (unknown) date) Intermediate unknown) Diarrhea, Verified 10/28/20 13:50 (unknown) (no (unknown) (unknown) latex Allergy Mild (units (unknown) date) ITCHY RASH Verified unknown) 10/28/20 13:50 (unknown) (no (unknown) (unknown) lavender (units (unkno wn) date) ([place] Allergy unknown) Mild rash Verified 10/28/20 13:50 (unknown) (no (unknown) (unknown) lightheadedness, (units (unknown) date) Denies unknown) palpitations, Denies dyspnea, Denies dyspnea on exertion (unknown) (no (unknown) (unknown) loratadine 10 mg (units (unknown) date) tablet 10 mg PO BID unknown) PRN 03/14/19 11/12/20 (unknown) (no (unknown) (unknown) loss of vision, (units (unknown) date) Reports eye pain unknown) and Reports photophobia (unknown) (no (unknown) (unknown) marital status: (units (unknown) date) unmarried,single unknown) (unknown) (no (unknown) (unknown) mg-trimethoprim (units (unknown) date) 160 mg tablet unknown) (unknown) (no (unknown) (unknown) neck pain, Denies (units (unknown) date) sore throat and unknown) Denies throat swelling (unknown) (no (unknown) (unknown) omeprazole 40 mg (units (unknown) date) capsule,delayed 40 unknown) mg PO DAILY #30 cap 06/10/20 (unknown) (no (unknown) (unknown) other (units (unkno wn) date) complications from unknown) the cerebral palsy. Patient has a ophthalmology (unknown) (no (unknown) (unknown) other. Will treat (units (unknown) date) with Tylenol. Will unknown) reassess. (unknown) (no (unknown) (unknown) oxycodone 5 mg (units (unknown) date) tablet 5 mg PO Q4HR unknown) PRN #30 tab 11/17/20 (unknown) (no (unknown) (unknown) prenat.vits,sergey,mi (units (unknown) date) [id number] 1 tab unknown) PO DAILY #90 tab 04/30/20 (unknown) (no (unknown) (unknown) release (units (unkno wn) date) unknown) (unknown) (no (unknown) (unknown) states that she was (units (unknown) date) diagnosed with unknown) myopia 2 years ago, however was unable to get (unknown) (no (unknown) (unknown) substance use (units ( unknown) date) type: does not use unknown) (unknown) (no (unknown) (unknown) sulfamethoxazole (units (unknown) date) 800 1 tab PO BID unknown) #14 tab 11/20/20 (unknown) (no (unknown) (unknown) upon awakening (units ( unknown) date) yesterday morning. unknown) Patient endorses being extremely photophobic. (unknown) (no (unknown) (unknown) wheezing (units (unkno wn) date) unknown) (unknown) (no (unknown) (unknown) which has made her (units (unknown) date) more prone to unknown) falls, fractures. However, she has not had any Result panel 3 (unknown) (no (unknown) (unknown) (no value) (units (unk nown) date) unknown) (unknown) (no (unknown) (unknown) Date of Service: (units (unknown) date) 11/15/21 unknown) (unknown) (no (unknown) (unknown) (no value) (units (unk nown) date) unknown) (unknown) (no (unknown) (unknown) <Electronically (units (unknown) date) signed by Jacinda unknown) P.A-C Sam> (unknown) (no (unknown) (unknown) 11/15/21 1639 (units ( unknown) date) unknown) (unknown) (no (unknown) (unknown) 1 tab PO BID Qty: (units (unknown) date) 14 0RF unknown) (unknown) (no (unknown) (unknown) 1 tab PO DAILY (units (unknown) date) Qty: 90 4RF unknown) (unknown) (no (unknown) (unknown) 10 mg PO BID PRN (units (unknown) date) (Reason: Allergy unknown) Symptoms) 0RF (unknown) (no (unknown) (unknown) 2 puff INHALATION (units (unknown) date) Q4-6H 0RF unknown) (unknown) (no (unknown) (unknown) 325 mg PO DAILY (units (unknown) date) Qty: 30 0RF unknown) (unknown) (no (unknown) (unknown) 40 mg PO DAILY (units (unknown) date) Qty: 30 5RF unknown) (unknown) (no (unknown) (unknown) 5 mg PO Q4HR PRN (units (unknown) date) (Reason: Pain, unknown) Moderate (4-6)) Qty: 30 0RF (unknown) (no (unknown) (unknown) Allergies (units (unkn own) date) unknown) (unknown) (no (unknown) (unknown) Cancer (units (unkno wn) date) unknown) (unknown) (no (unknown) (unknown) Chronic (units (unkno wn) date) obstructive unknown) pulmonary disease, unspecified COPD type (unknown) (no (unknown) (unknown) Developmental (units ( unknown) date) delay unknown) (unknown) (no (unknown) (unknown) Documented by: (units (unknown) date) FHUDSON unknown) (unknown) (no (unknown) (unknown) Emergency Report (units (unknown) date) unknown) (unknown) (no (unknown) (unknown) Essential (units (unkn own) date) hypertension unknown) (unknown) (no (unknown) (unknown) Family (units (unkno wn) date) estrangement unknown) (unknown) (no (unknown) (unknown) GI upset (units (unkno wn) date) unknown) (unknown) (no (unknown) (unknown) Home Medications (units (unknown) date) unknown) (unknown) (no (unknown) (unknown) [facility] (units (unknown) date) [address] unknown) [place] [id number] (unknown) (no (unknown) (unknown) Label Comments: (units (unknown) date) unknown) (unknown) (no (unknown) (unknown) Last Admin: (units (un known) date) 11/15/21 13:28 unknown) Dose: 975 mg (unknown) (no (unknown) (unknown) Mental health (units ( unknown) date) problem unknown) (unknown) (no (unknown) (unknown) Oxygen dependent (units (unknown) date) unknown) (unknown) (no (unknown) (unknown) Previous Rx's (units ( unknown) date) unknown) (unknown) (no (unknown) (unknown) Rx Instructions: (units (unknown) date) unknown) (unknown) (no (unknown) (unknown) Sleep apnea, (units (u nknown) date) unspecified type unknown) (unknown) (no (unknown) (unknown) Stop: 11/15/21 (units (unknown) date) 13:25 unknown) (unknown) (no (unknown) (unknown) Suicide attempt (units (unknown) date) unknown) (unknown) (no (unknown) (unknown) Take one tablet by (units (unknown) date) mouth daily. unknown) (unknown) (no (unknown) (unknown) Vital Signs - 8 hr (units (unknown) date) unknown) (unknown) (no (unknown) (unknown) patient has not (units (unknown) date) taken med unknown) (unknown) (no (unknown) (unknown) (no value) (units (unk nown) date) unknown) (unknown) (no (unknown) (unknown) albuterol sulfate (units (unknown) date) [Proventil HFA] 90 unknown) mcg/actuation HFA aerosol inhaler (unknown) (no (unknown) (unknown) ferrous sulfate (units (unknown) date) 325 mg (65 mg iron) unknown) Tablet (unknown) (no (unknown) (unknown) loratadine 10 mg (units (unknown) date) tablet unknown) (unknown) (no (unknown) (unknown) omeprazole 40 mg (units (unknown) date) capsule,delayed unknown) release(DR/EC) (unknown) (no (unknown) (unknown) oxycodone 5 mg (units (unknown) date) tablet unknown) (unknown) (no (unknown) (unknown) prenat.vits,sergey,mi (units (unknown) date) [id number]-velg-[id number] unknown) Tablet (unknown) (no (unknown) (unknown) sulfamethoxazole-t (units (unknown) date) rimethoprim 800-160 unknown) mg tablet (unknown) (no (unknown) (unknown) 11/15/21 (units (unkno wn) date) unknown) (unknown) (no (unknown) (unknown) Eye pain (units (unkno wn) date) unknown) (unknown) (no (unknown) (unknown) Medication (units (unk nown) date) Instructions unknown) Recorded (unknown) (no (unknown) (unknown) Medication (units (unk nown) date) Instructions unknown) Recorded Confirmed (unknown) (no (unknown) (unknown) Patient describes (units (unknown) date) the pain as sharp unknown) and pulsatile. Patient denies any fevers, (unknown) (no (unknown) (unknown) 11:24 (units (unkno wn) date) unknown) (unknown) (no (unknown) (unknown) 26-year-old female (units (unknown) date) with a past medical unknown) history of cerebral palsy presents to the (unknown) (no (unknown) (unknown) [id number] (units (unkno wn) date) unknown) (unknown) (no (unknown) (unknown) ANTI-INFLAMMA] (units (unknown) date) unknown) (unknown) (no (unknown) (unknown) Acetaminophen (units ( unknown) date) (Acetaminophen 325 unknown) Mg Tablet) 975 mg PO NOW ONE (unknown) (no (unknown) (unknown) Activity (units (unkno wn) date) Restrictions/Additi unknown) onal Instructions: (unknown) (no (unknown) (unknown) Acute blood loss (units (unknown) date) as cause of unknown) postoperative anemia () (unknown) (no (unknown) (unknown) Age/Sex: 26 / F (units (unknown) date) unknown) (unknown) (no (unknown) (unknown) Allergic/Immunolog (units (unknown) date) ic unknown) (unknown) (no (unknown) (unknown) Allergic/Immunolog (units (unknown) date) ic: Denies unknown) urticaria, Denies throat swelling and Denies (unknown) (no (unknown) (unknown) Allergy/AdvReac (units (unknown) date) Type Severity unknown) Reaction Status Date / Time (unknown) (no (unknown) (unknown) Anesthesia (units (unk nown) date) unknown) (unknown) (no (unknown) (unknown) Anti-Inflamma (units ( unknown) date) unknown) (unknown) (no (unknown) (unknown) Appearance: (units (un known) date) grossly normal unknown) (unknown) (no (unknown) (unknown) Asthma (2000) (units ( unknown) date) unknown) (unknown) (no (unknown) (unknown) Biliary colic (units ( unknown) date) () unknown) (unknown) (no (unknown) (unknown) Blood Pressure (units (unknown) date) 156/76 H 11/15/21 unknown) 11:24 (unknown) (no (unknown) (unknown) Blood Pressure (units (unknown) date) 156/76 H unknown) (unknown) (no (unknown) (unknown) Cardio (units (unkno wn) date) unknown) (unknown) (no (unknown) (unknown) Cardiovascular (units (unknown) date) unknown) (unknown) (no (unknown) (unknown) Cardiovascular: (units (unknown) date) Denies chest pain, unknown) Denies irregular heart rhythm, Denies (unknown) (no (unknown) (unknown) Cerebral palsy (units (unknown) date) (1995) unknown) (unknown) (no (unknown) (unknown) Chief complaint: (units (unknown) date) Eye Problems unknown) (unknown) (no (unknown) (unknown) Cholecystectomy (units (unknown) date) planned () unknown) (unknown) (no (unknown) (unknown) Cholelithiasis (units (unknown) date) () unknown) (unknown) (no (unknown) (unknown) Clinical (units (unkno wn) date) Impression: unknown) (unknown) (no (unknown) (unknown) Comments: (units (unkn own) date) unknown) (unknown) (no (unknown) (unknown) Conjunctivae: (units ( unknown) date) conjunctivae normal unknown) (unknown) (no (unknown) (unknown) Const (units (unkno wn) date) unknown) (unknown) (no (unknown) (unknown) Constitutional (units (unknown) date) unknown) (unknown) (no (unknown) (unknown) Constitutional: (units (unknown) date) Denies chills, unknown) Denies fatigue, Denies fever(s), Denies frequent (unknown) (no (unknown) (unknown) Contusion of left (units (unknown) date) arm unknown) (unknown) (no (unknown) (unknown) Course (units (unkno wn) date) unknown) (unknown) (no (unknown) (unknown) : 1995 (units (unknown) date) Acct:[id number] unknown) (unknown) (no (unknown) (unknown) Delivery by (units (un known) date) section of unknown) full-term (-06/27/17) (unknown) (no (unknown) (unknown) Denies frequent (units (unknown) date) falls, Denies loss unknown) of vision, Denies numbness, Denies tingling (unknown) (no (unknown) (unknown) Denies numbness (units (unknown) date) and Denies tingling unknown) (unknown) (no (unknown) (unknown) Departure (units (unkn own) date) unknown) (unknown) (no (unknown) (unknown) Discharge Plan (units (unknown) date) unknown) (unknown) (no (unknown) (unknown) Discontinued (units (u nknown) date) Medications unknown) (unknown) (no (unknown) (unknown) ED with 2 days of (units (unknown) date) left-sided eye unknown) pain. Patient states that the pain started (unknown) (no (unknown) (unknown) ED with 2 days of (units (unknown) date) left-sided eye unknown) pain. Suspicion for ocular migraine versus ot (unknown) (no (unknown) (unknown) ENT (units (unkno wn) date) unknown) (unknown) (no (unknown) (unknown) EOM: EOM intact (units (unknown) date) bilaterally unknown) (unknown) (no (unknown) (unknown) ER Physician: (units ( unknown) date) Sam,Hyma P.A-C unknown) (unknown) (no (unknown) (unknown) Ear pain () (units (unknown) date) unknown) (unknown) (no (unknown) (unknown) Ears, Nose, Mouth, (units (unknown) date) and Throat: Denies unknown) change in voice, Denies dizziness, Denies (unknown) (no (unknown) (unknown) Ears: hearing (units ( unknown) date) grossly normal unknown) bilaterally (unknown) (no (unknown) (unknown) Effort + (units (unkno wn) date) Inspection: normal unknown) respiratory effort (unknown) (no (unknown) (unknown) Endocrine (units (unkn own) date) unknown) (unknown) (no (unknown) (unknown) Endocrine: Denies (units (unknown) date) fatigue, Denies unknown) flushing and Denies palpitations (unknown) (no (unknown) (unknown) Esophagitis (units (un known) date) (06/08/15) unknown) (unknown) (no (unknown) (unknown) Exam (units (unkno wn) date) unknown) (unknown) (no (unknown) (unknown) Eyelids: eyelids (units (unknown) date) normal unknown) (unknown) (no (unknown) (unknown) Eyes (units (unkno wn) date) unknown) (unknown) (no (unknown) (unknown) Eyes: Denies (units (u nknown) date) change in vision, unknown) Denies eye discharge, Denies irritation, Denies (unknown) (no (unknown) (unknown) Face and sinus: (units (unknown) date) normal facial exam unknown) (unknown) (no (unknown) (unknown) Family History (units (unknown) date) (Reviewed 11/15/21 unknown) @ 13:35 by Jacinda Vargas PA-C) (unknown) (no (unknown) (unknown) Father Age: 54 (units (unknown) date) Cerebral palsy, unknown) unspecified type (unknown) (no (unknown) (unknown) Finger fracture (units (unknown) date) () unknown) (unknown) (no (unknown) (unknown) Finger fracture, (units (unknown) date) left () unknown) (unknown) (no (unknown) (unknown) Gastrointestinal (units (unknown) date) unknown) (unknown) (no (unknown) (unknown) Gastrointestinal: (units (unknown) date) Denies abdominal unknown) pain, Denies change in bowel habits, Denies (unknown) (no (unknown) (unknown) General (units (unkno wn) date) unknown) (unknown) (no (unknown) (unknown) General: Yes (units (u nknown) date) appearance normal, unknown) both eyes and all related structures (unknown) (no (unknown) (unknown) General: (units (unkno wn) date) cooperative, unknown) healthy appearing and comfortable (unknown) (no (unknown) (unknown) General: no rashes (units (unknown) date) or lesions noted unknown) (unknown) (no (unknown) (unknown) General: patient (units (unknown) date) alert, patient unknown) awake and patient oriented x3 (unknown) (no (unknown) (unknown) Genitourinary (units ( unknown) date) unknown) (unknown) (no (unknown) (unknown) Genitourinary: (units (unknown) date) Denies hematuria, unknown) Denies flank pain, Denies urinary incontinence (unknown) (no (unknown) (unknown) Grandfather (units (un known) date) Cerebral unknown) palsy, unspecified type (unknown) (no (unknown) (unknown) Grandfather Age: (units (unknown) date) 79 Emphysema, unknown) unspecified (unknown) (no (unknown) (unknown) Grandmother (units (un known) date) Diabetes unknown) mellitus (unknown) (no (unknown) (unknown) Grandmother (units (un known) date) Family unknown) estrangement (unknown) (no (unknown) (unknown) HENMT (units (unkno wn) date) unknown) (unknown) (no (unknown) (unknown) HPI - Eye Problem (units (unknown) date) unknown) (unknown) (no (unknown) (unknown) HPI Narrative: (units (unknown) date) unknown) (unknown) (no (unknown) (unknown) Head: normal to (units (unknown) date) inspection and unknown) normocephalic (unknown) (no (unknown) (unknown) Hematologic/Lympha (units (unknown) date) tic unknown) (unknown) (no (unknown) (unknown) Hematologic/Lympha (units (unknown) date) tic: Denies easy unknown) bruising (unknown) (no (unknown) (unknown) History of (units (unk nown) date) unknown) (-06/2017) (unknown) (no (unknown) (unknown) History of Present (units (unknown) date) Illness unknown) (unknown) (no (unknown) (unknown) History of (units (unk nown) date) cholecystectomy unknown) () (unknown) (no (unknown) (unknown) History of (units (unk nown) date) placement of ear unknown) tubes (unknown) (no (unknown) (unknown) History of third (units (unknown) date) molar tooth unknown) extraction (2014) (unknown) (no (unknown) (unknown) Derek Reese MD (units (unknown) date) [Primary Care unknown) Provider] - (unknown) (no (unknown) (unknown) Initial Vital (units ( unknown) date) Signs unknown) (unknown) (no (unknown) (unknown) Initial Vital (units ( unknown) date) Signs: unknown) (unknown) (no (unknown) (unknown) Instructions: DI (units (unknown) date) for Migraine, DI unknown) for Eye Pain (unknown) (no (unknown) (unknown) Integumentary/[place] (units (unknown) date) sts unknown) (unknown) (no (unknown) (unknown) Left eye pain (units ( unknown) date) unknown) (unknown) (no (unknown) (unknown) Left wrist sprain (units (unknown) date) () unknown) (unknown) (no (unknown) (unknown) MDM - Eye Problem (units (unknown) date) unknown) (unknown) (no (unknown) (unknown) MDM Narrative (units ( unknown) date) unknown) (unknown) (no (unknown) (unknown) Medical History (units (unknown) date) (Reviewed 11/15/21 unknown) @ 13:35 by Jacinda Vargas PA-C) (unknown) (no (unknown) (unknown) Medical decision (units (unknown) date) making narrative: unknown) (unknown) (no (unknown) (unknown) Mental Status: (units (unknown) date) mental status unknown) grossly normal (unknown) (no (unknown) (unknown) Mode of arrival: (units (unknown) date) Ambulatory unknown) (unknown) (no (unknown) (unknown) Mother Age: 48 (units (unknown) date) Essential unknown) hypertension (unknown) (no (unknown) (unknown) Musculoskeletal (units (unknown) date) unknown) (unknown) (no (unknown) (unknown) Musculoskeletal: (units (unknown) date) Denies back pain, unknown) Denies muscle weakness, Denies neck pain, (unknown) (no (unknown) (unknown) NSAIDS (units (unkno wn) date) (Non-Steroidal unknown) Allergy Mild Hives Verified 10/28/20 13:50 (unknown) (no (unknown) (unknown) Neck (units (unkno wn) date) unknown) (unknown) (no (unknown) (unknown) Neck: normal (units (u nknown) date) visual inspection, unknown) full ROM and no meningeal signs (unknown) (no (unknown) (unknown) Neuro (units (unkno wn) date) unknown) (unknown) (no (unknown) (unknown) Neurologic (units (unk nown) date) unknown) (unknown) (no (unknown) (unknown) Neurologic: Denies (units (unknown) date) behavioral changes, unknown) Denies confusion, Denies dizziness, (unknown) (no (unknown) (unknown) No Action (units (unkn own) date) unknown) (unknown) (no (unknown) (unknown) Nose: external (units (unknown) date) nose normal unknown) (unknown) (no (unknown) (unknown) Ordered: (units (unkno wn) date) unknown) (unknown) (no (unknown) (unknown) Orders (units (unkno wn) date) unknown) (unknown) (no (unknown) (unknown) Patient (units (unkno wn) date) Disposition: Home unknown) (unknown) (no (unknown) (unknown) Patient History (units (unknown) date) unknown) (unknown) (no (unknown) (unknown) Patient's symptoms (units (unknown) date) resolved with unknown) Tylenol. Discharge patient home with ED return (unknown) (no (unknown) (unknown) Patient: (units (unkno wn) date) Jamari Simmons A unknown) MR#: [id number] (unknown) (no (unknown) (unknown) Prescriptions: (units (unknown) date) unknown) (unknown) (no (unknown) (unknown) Psych (units (unkno wn) date) unknown) (unknown) (no (unknown) (unknown) Psychiatric (units (un known) date) unknown) (unknown) (no (unknown) (unknown) Psychiatric: Denies (units (unknown) date) anxiety, Denies unknown) behavioral changes, Denies confusion, Denies (unknown) (no (unknown) (unknown) Pulse Oximetry (units (unknown) date) 100 11/15/21 unknown) 11:24 (unknown) (no (unknown) (unknown) Pulse Oximetry 100 (units (unknown) date) unknown) (unknown) (no (unknown) (unknown) Pulse Rate 100 H (units (unknown) date) 11/15/21 11:24 unknown) (unknown) (no (unknown) (unknown) Pulse Rate 100 H (units (unknown) date) unknown) (unknown) (no (unknown) (unknown) Pupils: PERRL (units ( unknown) date) unknown) (unknown) (no (unknown) (unknown) RLS (restless legs (units (unknown) date) syndrome) (2013) unknown) (unknown) (no (unknown) (unknown) ROS Unobtainable: (units (unknown) date) All systems unknown) reviewed + are unremarkable except as noted in HPI (unknown) (no (unknown) (unknown) Rate: regular rate (units (unknown) date) unknown) (unknown) (no (unknown) (unknown) Referrals: (units (unk nown) date) unknown) (unknown) (no (unknown) (unknown) Reflux gastritis (units (unknown) date) (-2017) unknown) (unknown) (no (unknown) (unknown) Related Data (units (u nknown) date) unknown) (unknown) (no (unknown) (unknown) Resp (units (unkno wn) date) unknown) (unknown) (no (unknown) (unknown) Respiratory (units (un known) date) unknown) (unknown) (no (unknown) (unknown) Respiratory Rate (units (unknown) date) 18 11/15/21 11:24 unknown) (unknown) (no (unknown) (unknown) Respiratory Rate (units (unknown) date) 18 unknown) (unknown) (no (unknown) (unknown) Respiratory: Denies (units (unknown) date) cough, Denies unknown) dyspnea, Denies dyspnea on exertion and Denies (unknown) (no (unknown) (unknown) Review of Systems (units (unknown) date) unknown) (unknown) (no (unknown) (unknown) Rib sprain (units (unk nown) date) unknown) (unknown) (no (unknown) (unknown) Sclera: sclerae (units (unknown) date) normal unknown) (unknown) (no (unknown) (unknown) Shoulder pain (units ( unknown) date) (2013) unknown) (unknown) (no (unknown) (unknown) Signed By: (units (unk nown) date) unknown) (unknown) (no (unknown) (unknown) Sister Age: 27 (units (unknown) date) Cerebral palsy, unknown) unspecified type (unknown) (no (unknown) (unknown) Skin (units (unkno wn) date) unknown) (unknown) (no (unknown) (unknown) Skin/Breast: (units (u nknown) date) Denies pruritus, unknown) Denies erythema, Denies rash and Denies wounds (unknown) (no (unknown) (unknown) Smoking Status: (units (unknown) date) Never smoker unknown) (unknown) (no (unknown) (unknown) Smoking Status: (units (unknown) date) Never smoker unknown) (unknown) (no (unknown) (unknown) Social History (units (unknown) date) (Reviewed 11/15/21 unknown) @ 13:35 by Jacinda Vargas PA-C) (unknown) (no (unknown) (unknown) Source: patient (units (unknown) date) unknown) (unknown) (no (unknown) (unknown) Sprain of left (units (unknown) date) hand unknown) (unknown) (no (unknown) (unknown) Stated complaint: (units (unknown) date) Pain in left eye unknown) (unknown) (no (unknown) (unknown) Substance Use (units ( unknown) date) Type: does not use unknown) (unknown) (no (unknown) (unknown) Surgical History (units (unknown) date) (Reviewed 11/15/21 unknown) @ 13:35 by Jacinda Vargas PA-C) (unknown) (no (unknown) (unknown) Time Seen by (units (u nknown) date) Provider: 11/15/21 unknown) 12:55 (unknown) (no (unknown) (unknown) Upper respiratory (units (unknown) date) infection unknown) () (unknown) (no (unknown) (unknown) Vital Signs (units (un known) date) unknown) (unknown) (no (unknown) (unknown) Vital signs: (units (u nknown) date) unknown) (unknown) (no (unknown) (unknown) Vomiting (units (unkno wn) date) unknown) (unknown) (no (unknown) (unknown) You were evaluated (units (unknown) date) in the ED today for unknown) left-sided eye pain. Your symptoms are (unknown) (no (unknown) (unknown) [LAVENDER] (units (unk nown) date) unknown) (unknown) (no (unknown) (unknown) [NSAIDS (units (unkno wn) date) (NON-STEROIDAL unknown) (unknown) (no (unknown) (unknown) aerosol inhaler (units (unknown) date) (Proventil HFA) unknown) (unknown) (no (unknown) (unknown) albuterol sulfate (units (unknown) date) 90 mcg/actuation 2 unknown) puff INHALATION Q4-6H 11/12/20 11/12/20 (unknown) (no (unknown) (unknown) alcohol intake (units (unknown) date) frequency: 0-2 unknown) drinks per day (unknown) (no (unknown) (unknown) alcohol intake: (units (unknown) date) never unknown) (unknown) (no (unknown) (unknown) amoxicillin (units (un known) date) Allergy unknown) Intermediate RASH Verified 10/28/20 13:50 (unknown) (no (unknown) (unknown) and Denies (units (unk nown) date) orthopnea unknown) (unknown) (no (unknown) (unknown) and Denies urinary (units (unknown) date) urgency unknown) (unknown) (no (unknown) (unknown) and Denies (units (unk nown) date) weakness unknown) (unknown) (no (unknown) (unknown) and below (units (unkn own) date) unknown) (unknown) (no (unknown) (unknown) angustifolia) (units ( unknown) date) unknown) (unknown) (no (unknown) (unknown) appointment for (units (unknown) date) 11/18/2021 to be unknown) evaluated for corrective eyeglasses. Patient (unknown) (no (unknown) (unknown) chills, vision (units (unknown) date) changes, nausea, unknown) vomiting, headache, eye discharge. Patient (unknown) (no (unknown) (unknown) continue to take (units (unknown) date) Tylenol for your unknown) symptoms. Please follow-up and keep your (unknown) (no (unknown) (unknown) corrective lenses (units (unknown) date) since she did not unknown) have the money for it. (unknown) (no (unknown) (unknown) denies history of (units (unknown) date) migraines/headaches unknown) . Patient has a history of cerebral palsy (unknown) (no (unknown) (unknown) depression, Denies (units (unknown) date) homicidal ideation unknown) and Denies suicidal ideation (unknown) (no (unknown) (unknown) diarrhea, Denies (units (unknown) date) nausea and Denies unknown) vomiting (unknown) (no (unknown) (unknown) falls, Denies (units ( unknown) date) lethargy and Denies unknown) weakness (unknown) (no (unknown) (unknown) ferrous sulfate (units (unknown) date) 325 mg (65 mg 325 unknown) mg PO DAILY #30 tab 11/13/20 (unknown) (no (unknown) (unknown) her. Will treat (units (unknown) date) with Tylenol. Will unknown) reassess. (unknown) (no (unknown) (unknown) household members: (units (unknown) date) family unknown) (unknown) (no (unknown) (unknown) iron) tablet (units (u nknown) date) unknown) (unknown) (no (unknown) (unknown) lactose AdvReac (units (unknown) date) Intermediate unknown) Diarrhea, Verified 10/28/20 13:50 (unknown) (no (unknown) (unknown) latex Allergy Mild (units (unknown) date) ITCHY RASH Verified unknown) 10/28/20 13:50 (unknown) (no (unknown) (unknown) lavender (units (unkno wn) date) ([place] Allergy unknown) Mild rash Verified 10/28/20 13:50 (unknown) (no (unknown) (unknown) lightheadedness, (units (unknown) date) Denies unknown) palpitations, Denies dyspnea, Denies dyspnea on exertion (unknown) (no (unknown) (unknown) likely due to a (units (unknown) date) ocular migraine. unknown) Your symptoms improved with Tylenol. You may (unknown) (no (unknown) (unknown) loratadine 10 mg (units (unknown) date) tablet 10 mg PO BID unknown) PRN 03/14/19 11/12/20 (unknown) (no (unknown) (unknown) loss of vision, (units (unknown) date) Reports eye pain unknown) and Reports photophobia (unknown) (no (unknown) (unknown) marital status: (units (unknown) date) unmarried,single unknown) (unknown) (no (unknown) (unknown) mg-trimethoprim (units (unknown) date) 160 mg tablet unknown) (unknown) (no (unknown) (unknown) neck pain, Denies (units (unknown) date) sore throat and unknown) Denies throat swelling (unknown) (no (unknown) (unknown) omeprazole 40 mg (units (unknown) date) capsule,delayed 40 unknown) mg PO DAILY #30 cap 06/10/20 (unknown) (no (unknown) (unknown) 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 Return to the ED if (unknown) (no (unknown) (unknown) ophthalmology (units ( unknown) date) appointment on unknown) 11/18/2021. (unknown) (no (unknown) (unknown) other (units (unkno wn) date) complications from unknown) the cerebral palsy. Patient has a ophthalmology (unknown) (no (unknown) (unknown) oxycodone 5 mg (units (unknown) date) tablet 5 mg PO Q4HR unknown) PRN #30 tab 11/17/20 (unknown) (no (unknown) (unknown) precautions. (units (u nknown) date) Patient verbalized unknown) understanding and also agreed to keep the (unknown) (no (unknown) (unknown) prenat.vits,sergey,mi (units (unknown) date) [id number] 1 tab unknown) PO DAILY #90 tab 04/30/20 (unknown) (no (unknown) (unknown) release (units (unkno wn) date) unknown) (unknown) (no (unknown) (unknown) states that she was (units (unknown) date) diagnosed with unknown) myopia 2 years ago, however was unable to get (unknown) (no (unknown) (unknown) substance use (units ( unknown) date) type: does not use unknown) (unknown) (no (unknown) (unknown) sulfamethoxazole (units (unknown) date) 800 1 tab PO BID unknown) #14 tab 11/20/20 (unknown) (no (unknown) (unknown) upon awakening (units ( unknown) date) yesterday morning. unknown) Patient endorses being extremely photophobic. (unknown) (no (unknown) (unknown) wheezing (units (unkno wn) date) unknown) (unknown) (no (unknown) (unknown) which has made her (units (unknown) date) more prone to unknown) falls, fractures. However, she has not had any (unknown) (no (unknown) (unknown) your symptoms (units ( unknown) date) worsen, you have unknown) changes in vision. Result panel 4 (unknown) (no (unknown) (unknown) (no value) (units (unk nown) date) unknown) (unknown) (no (unknown) (unknown) Date of Service: (units (unknown) date) 11/15/21 unknown) (unknown) (no (unknown) (unknown) (no value) (units (unk nown) date) unknown) (unknown) (no (unknown) (unknown) <Electronically (units (unknown) date) signed by Trista unknown) Divya D.O.> (unknown) (no (unknown) (unknown) <Electronically (units (unknown) date) signed by Trista unknown) Divya D.O.> (unknown) (no (unknown) (unknown) <Electronically (units (unknown) date) signed by Jacinda unknown) P.A-C Sam> (unknown) (no (unknown) (unknown) 11/15/21 1639 (units ( unknown) date) unknown) (unknown) (no (unknown) (unknown) 11/17/21 0724 (units ( unknown) date) unknown) (unknown) (no (unknown) (unknown) 1 tab PO BID Qty: (units (unknown) date) 14 0RF unknown) (unknown) (no (unknown) (unknown) 1 tab PO DAILY (units (unknown) date) Qty: 90 4RF unknown) (unknown) (no (unknown) (unknown) 10 mg PO BID PRN (units (unknown) date) (Reason: Allergy unknown) Symptoms) 0RF (unknown) (no (unknown) (unknown) 2 puff INHALATION (units (unknown) date) Q4-6H 0RF unknown) (unknown) (no (unknown) (unknown) 325 mg PO DAILY (units (unknown) date) Qty: 30 0RF unknown) (unknown) (no (unknown) (unknown) 40 mg PO DAILY (units (unknown) date) Qty: 30 5RF unknown) (unknown) (no (unknown) (unknown) 5 mg PO Q4HR PRN (units (unknown) date) (Reason: Pain, unknown) Moderate (4-6)) Qty: 30 0RF (unknown) (no (unknown) (unknown) Allergies (units (unkn own) date) unknown) (unknown) (no (unknown) (unknown) Cancer (units (unkno wn) date) unknown) (unknown) (no (unknown) (unknown) Chronic (units (unkno wn) date) obstructive unknown) pulmonary disease, unspecified COPD type (unknown) (no (unknown) (unknown) Developmental (units ( unknown) date) delay unknown) (unknown) (no (unknown) (unknown) Documented by: (units (unknown) date) FHUDSON unknown) (unknown) (no (unknown) (unknown) Emergency Report (units (unknown) date) unknown) (unknown) (no (unknown) (unknown) Essential (units (unkn own) date) hypertension unknown) (unknown) (no (unknown) (unknown) Family (units (unkno wn) date) estrangement unknown) (unknown) (no (unknown) (unknown) GI upset (units (unkno wn) date) unknown) (unknown) (no (unknown) (unknown) Home Medications (units (unknown) date) unknown) (unknown) (no (unknown) (unknown) [facility] (units (unknown) date) [address] unknown) [place] [address] (unknown) (no (unknown) (unknown) Label Comments: (units (unknown) date) unknown) (unknown) (no (unknown) (unknown) Last Admin: (units (un known) date) 11/15/21 13:28 unknown) Dose: 975 mg (unknown) (no (unknown) (unknown) Mental health (units ( unknown) date) problem unknown) (unknown) (no (unknown) (unknown) Oxygen dependent (units (unknown) date) unknown) (unknown) (no (unknown) (unknown) Previous Rx's (units ( unknown) date) unknown) (unknown) (no (unknown) (unknown) Rx Instructions: (units (unknown) date) unknown) (unknown) (no (unknown) (unknown) Sleep apnea, (units (u nknown) date) unspecified type unknown) (unknown) (no (unknown) (unknown) Stop: 11/15/21 (units (unknown) date) 13:25 unknown) (unknown) (no (unknown) (unknown) Suicide attempt (units (unknown) date) unknown) (unknown) (no (unknown) (unknown) Take one tablet by (units (unknown) date) mouth daily. unknown) (unknown) (no (unknown) (unknown) Vital Signs - 8 hr (units (unknown) date) unknown) (unknown) (no (unknown) (unknown) patient has not (units (unknown) date) taken med unknown) (unknown) (no (unknown) (unknown) (no value) (units (unk nown) date) unknown) (unknown) (no (unknown) (unknown) albuterol sulfate (units (unknown) date) [Proventil HFA] 90 unknown) mcg/actuation HFA aerosol inhaler (unknown) (no (unknown) (unknown) ferrous sulfate (units (unknown) date) 325 mg (65 mg iron) unknown) Tablet (unknown) (no (unknown) (unknown) loratadine 10 mg (units (unknown) date) tablet unknown) (unknown) (no (unknown) (unknown) omeprazole 40 mg (units (unknown) date) capsule,delayed unknown) release(DR/EC) (unknown) (no (unknown) (unknown) oxycodone 5 mg (units (unknown) date) tablet unknown) (unknown) (no (unknown) (unknown) prenat.vits,sergey,mi (units (unknown) date) [id number] unknown) Tablet (unknown) (no (unknown) (unknown) sulfamethoxazole-t (units (unknown) date) rimethoprim 800-160 unknown) mg tablet (unknown) (no (unknown) (unknown) 11/15/21 (units (unkno wn) date) unknown) (unknown) (no (unknown) (unknown) Eye pain (units (unkno wn) date) unknown) (unknown) (no (unknown) (unknown) Medication (units (unk nown) date) Instructions unknown) Recorded (unknown) (no (unknown) (unknown) Medication (units (unk nown) date) Instructions unknown) Recorded Confirmed (unknown) (no (unknown) (unknown) Patient describes (units (unknown) date) the pain as sharp unknown) and pulsatile. Patient denies any fevers, (unknown) (no (unknown) (unknown) <Trista Stokes, (units (unknown) date) DO - Last Filed: unknown) 11/17/21 07:24> (unknown) (no (unknown) (unknown) <Jacinda Vargas PA-C (units (unknown) date) - Last Filed: unknown) 11/15/21 16:39> (unknown) (no (unknown) (unknown) <cosigner> (units (unk nown) date) unknown) (unknown) (no (unknown) (unknown) 11:24 (units (unkno wn) date) unknown) (unknown) (no (unknown) (unknown) 26-year-old female (units (unknown) date) with a past medical unknown) history of cerebral palsy presents to the (unknown) (no (unknown) (unknown) [id number] (units (unkno wn) date) unknown) (unknown) (no (unknown) (unknown) ANTI-INFLAMMA] (units (unknown) date) unknown) (unknown) (no (unknown) (unknown) Acetaminophen (units ( unknown) date) (Acetaminophen 325 unknown) Mg Tablet) 975 mg PO NOW ONE (unknown) (no (unknown) (unknown) Activity (units (unkno wn) date) Restrictions/Additi unknown) onal Instructions: (unknown) (no (unknown) (unknown) Acute blood loss (units (unknown) date) as cause of unknown) postoperative anemia () (unknown) (no (unknown) (unknown) Age/Sex: 26 / F (units (unknown) date) unknown) (unknown) (no (unknown) (unknown) Allergic/Immunolog (units (unknown) date) ic unknown) (unknown) (no (unknown) (unknown) Allergic/Immunolog (units (unknown) date) ic: Denies unknown) urticaria, Denies throat swelling and Denies (unknown) (no (unknown) (unknown) Allergy/AdvReac (units (unknown) date) Type Severity unknown) Reaction Status Date / Time (unknown) (no (unknown) (unknown) Anesthesia (units (unk nown) date) unknown) (unknown) (no (unknown) (unknown) Anti-Inflamma (units ( unknown) date) unknown) (unknown) (no (unknown) (unknown) Appearance: (units (un known) date) grossly normal unknown) (unknown) (no (unknown) (unknown) Asthma (2000) (units ( unknown) date) unknown) (unknown) (no (unknown) (unknown) Biliary colic (units ( unknown) date) () unknown) (unknown) (no (unknown) (unknown) Blood Pressure (units (unknown) date) 156/76 H 11/15/21 unknown) 11:24 (unknown) (no (unknown) (unknown) Blood Pressure (units (unknown) date) 156/76 H unknown) (unknown) (no (unknown) (unknown) Cardio (units (unkno wn) date) unknown) (unknown) (no (unknown) (unknown) Cardiovascular (units (unknown) date) unknown) (unknown) (no (unknown) (unknown) Cardiovascular: (units (unknown) date) Denies chest pain, unknown) Denies irregular heart rhythm, Denies (unknown) (no (unknown) (unknown) Cerebral palsy (units (unknown) date) (1995) unknown) (unknown) (no (unknown) (unknown) Chief complaint: (units (unknown) date) Eye Problems unknown) (unknown) (no (unknown) (unknown) Cholecystectomy (units (unknown) date) planned (-12/2017) unknown) (unknown) (no (unknown) (unknown) Cholelithiasis (units (unknown) date) (-2017) unknown) (unknown) (no (unknown) (unknown) Clinical (units (unkno wn) date) Impression: unknown) (unknown) (no (unknown) (unknown) Comments: (units (unkn own) date) unknown) (unknown) (no (unknown) (unknown) Conjunctivae: (units ( unknown) date) conjunctivae normal unknown) (unknown) (no (unknown) (unknown) Const (units (unkno wn) date) unknown) (unknown) (no (unknown) (unknown) Constitutional (units (unknown) date) unknown) (unknown) (no (unknown) (unknown) Constitutional: (units (unknown) date) Denies chills, unknown) Denies fatigue, Denies fever(s), Denies frequent (unknown) (no (unknown) (unknown) Contusion of left (units (unknown) date) arm unknown) (unknown) (no (unknown) (unknown) Cosign (units (unkno wn) date) unknown) (unknown) (no (unknown) (unknown) Course (units (unkno wn) date) unknown) (unknown) (no (unknown) (unknown) : 1995 (units (unknown) date) Acct:[id number] unknown) (unknown) (no (unknown) (unknown) Delivery by (units (un known) date) section of unknown) full-term infant (-06/27/17) (unknown) (no (unknown) (unknown) Denies frequent (units (unknown) date) falls, Denies loss unknown) of vision, Denies numbness, Denies tingling (unknown) (no (unknown) (unknown) Denies numbness (units (unknown) date) and Denies tingling unknown) (unknown) (no (unknown) (unknown) Departure (units (unkn own) date) unknown) (unknown) (no (unknown) (unknown) Discharge Plan (units (unknown) date) unknown) (unknown) (no (unknown) (unknown) Discontinued (units (u nknown) date) Medications unknown) (unknown) (no (unknown) (unknown) ED Attending (units (u nknown) date) Cosignature unknown) Attestation: (unknown) (no (unknown) (unknown) ED with 2 days of (units (unknown) date) left-sided eye unknown) pain. Patient states that the pain started (unknown) (no (unknown) (unknown) ED with 2 days of (units (unknown) date) left-sided eye unknown) pain. Suspicion for ocular migraine versus (unknown) (no (unknown) (unknown) ENT (units (unkno wn) date) unknown) (unknown) (no (unknown) (unknown) EOM: EOM intact (units (unknown) date) bilaterally unknown) (unknown) (no (unknown) (unknown) ER Physician: (units ( unknown) date) Jacinda Vargas P.A-C unknown) (unknown) (no (unknown) (unknown) Ear pain () (units (unknown) date) unknown) (unknown) (no (unknown) (unknown) Ears, Nose, Mouth, (units (unknown) date) and Throat: Denies unknown) change in voice, Denies dizziness, Denies (unknown) (no (unknown) (unknown) Ears: hearing (units ( unknown) date) grossly normal unknown) bilaterally (unknown) (no (unknown) (unknown) Effort + (units (unkno wn) date) Inspection: normal unknown) respiratory effort (unknown) (no (unknown) (unknown) Endocrine (units (unkn own) date) unknown) (unknown) (no (unknown) (unknown) Endocrine: Denies (units (unknown) date) fatigue, Denies unknown) flushing and Denies palpitations (unknown) (no (unknown) (unknown) Esophagitis (units (un known) date) (06/08/15) unknown) (unknown) (no (unknown) (unknown) Exam (units (unkno wn) date) unknown) (unknown) (no (unknown) (unknown) Eyelids: eyelids (units (unknown) date) normal unknown) (unknown) (no (unknown) (unknown) Eyes (units (unkno wn) date) unknown) (unknown) (no (unknown) (unknown) Eyes: Denies (units (u nknown) date) change in vision, unknown) Denies eye discharge, Denies irritation, Denies (unknown) (no (unknown) (unknown) Face and sinus: (units (unknown) date) normal facial exam unknown) (unknown) (no (unknown) (unknown) Family History (units (unknown) date) (Reviewed 11/15/21 unknown) @ 13:35 by Jacinda Vargas PA-C) (unknown) (no (unknown) (unknown) Father Age: 54 (units (unknown) date) Cerebral palsy, unknown) unspecified type (unknown) (no (unknown) (unknown) Finger fracture (units (unknown) date) () unknown) (unknown) (no (unknown) (unknown) Finger fracture, (units (unknown) date) left () unknown) (unknown) (no (unknown) (unknown) Gastrointestinal (units (unknown) date) unknown) (unknown) (no (unknown) (unknown) Gastrointestinal: (units (unknown) date) Denies abdominal unknown) pain, Denies change in bowel habits, Denies (unknown) (no (unknown) (unknown) General (units (unkno wn) date) unknown) (unknown) (no (unknown) (unknown) General: Yes (units (u nknown) date) appearance normal, unknown) both eyes and all related structures (unknown) (no (unknown) (unknown) General: (units (unkno wn) date) cooperative, unknown) healthy appearing and comfortable (unknown) (no (unknown) (unknown) General: no rashes (units (unknown) date) or lesions noted unknown) (unknown) (no (unknown) (unknown) General: patient (units (unknown) date) alert, patient unknown) awake and patient oriented x3 (unknown) (no (unknown) (unknown) Genitourinary (units ( unknown) date) unknown) (unknown) (no (unknown) (unknown) Genitourinary: (units (unknown) date) Denies hematuria, unknown) Denies flank pain, Denies urinary incontinence (unknown) (no (unknown) (unknown) Grandfather (units (un known) date) Cerebral unknown) palsy, unspecified type (unknown) (no (unknown) (unknown) Grandfather Age: (units (unknown) date) 79 Emphysema, unknown) unspecified (unknown) (no (unknown) (unknown) Grandmother (units (un known) date) Diabetes unknown) mellitus (unknown) (no (unknown) (unknown) Grandmother (units (un known) date) Family unknown) estrangement (unknown) (no (unknown) (unknown) HENMT (units (unkno wn) date) unknown) (unknown) (no (unknown) (unknown) HPI - Eye Problem (units (unknown) date) unknown) (unknown) (no (unknown) (unknown) HPI Narrative: (units (unknown) date) unknown) (unknown) (no (unknown) (unknown) Head: normal to (units (unknown) date) inspection and unknown) normocephalic (unknown) (no (unknown) (unknown) Hematologic/Lympha (units (unknown) date) tic unknown) (unknown) (no (unknown) (unknown) Hematologic/Lympha (units (unknown) date) tic: Denies easy unknown) bruising (unknown) (no (unknown) (unknown) History of (units (unk nown) date) unknown) (-06/2017) (unknown) (no (unknown) (unknown) History of Present (units (unknown) date) Illness unknown) (unknown) (no (unknown) (unknown) History of (units (unk nown) date) cholecystectomy unknown) () (unknown) (no (unknown) (unknown) History of (units (unk nown) date) placement of ear unknown) tubes (unknown) (no (unknown) (unknown) History of third (units (unknown) date) molar tooth unknown) extraction (2014) (unknown) (no (unknown) (unknown) Derek Reese MD (units (unknown) date) [Primary Care unknown) Provider] - (unknown) (no (unknown) (unknown) I was immediately (units (unknown) date) available in the unknown) department for consultation. Documentation (unknown) (no (unknown) (unknown) Initial Vital (units ( unknown) date) Signs unknown) (unknown) (no (unknown) (unknown) Initial Vital (units ( unknown) date) Signs: unknown) (unknown) (no (unknown) (unknown) Instructions: DI (units (unknown) date) for Migraine, DI unknown) for Eye Pain (unknown) (no (unknown) (unknown) Integumentary/[place] (units (unknown) date) sts unknown) (unknown) (no (unknown) (unknown) Left eye pain (units ( unknown) date) unknown) (unknown) (no (unknown) (unknown) Left wrist sprain (units (unknown) date) (-2008) unknown) (unknown) (no (unknown) (unknown) MDM - Eye Problem (units (unknown) date) unknown) (unknown) (no (unknown) (unknown) MDM Narrative (units ( unknown) date) unknown) (unknown) (no (unknown) (unknown) Medical History (units (unknown) date) (Reviewed 11/15/21 unknown) @ 13:35 by Jacinda Vargas PA-C) (unknown) (no (unknown) (unknown) Medical decision (units (unknown) date) making narrative: unknown) (unknown) (no (unknown) (unknown) Mental Status: (units (unknown) date) mental status unknown) grossly normal (unknown) (no (unknown) (unknown) Mode of arrival: (units (unknown) date) Ambulatory unknown) (unknown) (no (unknown) (unknown) Mother Age: 48 (units (unknown) date) Essential unknown) hypertension (unknown) (no (unknown) (unknown) Musculoskeletal (units (unknown) date) unknown) (unknown) (no (unknown) (unknown) Musculoskeletal: (units (unknown) date) Denies back pain, unknown) Denies muscle weakness, Denies neck pain, (unknown) (no (unknown) (unknown) NSAIDS (units (unkno wn) date) (Non-Steroidal unknown) Allergy Mild Hives Verified 10/28/20 13:50 (unknown) (no (unknown) (unknown) Neck (units (unkno wn) date) unknown) (unknown) (no (unknown) (unknown) Neck: normal (units (u nknown) date) visual inspection, unknown) full ROM and no meningeal signs (unknown) (no (unknown) (unknown) Neuro (units (unkno wn) date) unknown) (unknown) (no (unknown) (unknown) Neurologic (units (unk nown) date) unknown) (unknown) (no (unknown) (unknown) Neurologic: Denies (units (unknown) date) behavioral changes, unknown) Denies confusion, Denies dizziness, (unknown) (no (unknown) (unknown) No Action (units (unkn own) date) unknown) (unknown) (no (unknown) (unknown) Nose: external (units (unknown) date) nose normal unknown) (unknown) (no (unknown) (unknown) Ordered: (units (unkno wn) date) unknown) (unknown) (no (unknown) (unknown) Orders (units (unkno wn) date) unknown) (unknown) (no (unknown) (unknown) Patient (units (unkno wn) date) Disposition: Home unknown) (unknown) (no (unknown) (unknown) Patient History (units (unknown) date) unknown) (unknown) (no (unknown) (unknown) Patient's symptoms (units (unknown) date) resolved with unknown) Tylenol. Discharge patient home with ED return (unknown) (no (unknown) (unknown) Patient: (units (unkno wn) date) Jamari Simmons unknown) MR#: [id number] (unknown) (no (unknown) (unknown) Prescriptions: (units (unknown) date) unknown) (unknown) (no (unknown) (unknown) Psych (units (unkno wn) date) unknown) (unknown) (no (unknown) (unknown) Psychiatric (units (un known) date) unknown) (unknown) (no (unknown) (unknown) Psychiatric: Denies (units (unknown) date) anxiety, Denies unknown) behavioral changes, Denies confusion, Denies (unknown) (no (unknown) (unknown) Pulse Oximetry (units (unknown) date) 100 11/15/21 unknown) 11:24 (unknown) (no (unknown) (unknown) Pulse Oximetry 100 (units (unknown) date) unknown) (unknown) (no (unknown) (unknown) Pulse Rate 100 H (units (unknown) date) 11/15/21 11:24 unknown) (unknown) (no (unknown) (unknown) Pulse Rate 100 H (units (unknown) date) unknown) (unknown) (no (unknown) (unknown) Pupils: PERRL (units ( unknown) date) unknown) (unknown) (no (unknown) (unknown) RLS (restless legs (units (unknown) date) syndrome) (2013) unknown) (unknown) (no (unknown) (unknown) ROS Unobtainable: (units (unknown) date) All systems unknown) reviewed + are unremarkable except as noted in HPI (unknown) (no (unknown) (unknown) Rate: regular rate (units (unknown) date) unknown) (unknown) (no (unknown) (unknown) Referrals: (units (unk nown) date) unknown) (unknown) (no (unknown) (unknown) Reflux gastritis (units (unknown) date) (-2017) unknown) (unknown) (no (unknown) (unknown) Related Data (units (u nknown) date) unknown) (unknown) (no (unknown) (unknown) Resp (units (unkno wn) date) unknown) (unknown) (no (unknown) (unknown) Respiratory (units (un known) date) unknown) (unknown) (no (unknown) (unknown) Respiratory Rate (units (unknown) date) 18 11/15/21 11:24 unknown) (unknown) (no (unknown) (unknown) Respiratory Rate (units (unknown) date) 18 unknown) (unknown) (no (unknown) (unknown) Respiratory: Denies (units (unknown) date) cough, Denies unknown) dyspnea, Denies dyspnea on exertion and Denies (unknown) (no (unknown) (unknown) Review of Systems (units (unknown) date) unknown) (unknown) (no (unknown) (unknown) Rib sprain (units (unk nown) date) unknown) (unknown) (no (unknown) (unknown) Sclera: sclerae (units (unknown) date) normal unknown) (unknown) (no (unknown) (unknown) Shoulder pain (units ( unknown) date) (2013) unknown) (unknown) (no (unknown) (unknown) Signed By: (units (unk nown) date) unknown) (unknown) (no (unknown) (unknown) Sister Age: 27 (units (unknown) date) Cerebral palsy, unknown) unspecified type (unknown) (no (unknown) (unknown) Skin (units (unkno wn) date) unknown) (unknown) (no (unknown) (unknown) Skin/Breast: (units (u nknown) date) Denies pruritus, unknown) Denies erythema, Denies rash and Denies wounds (unknown) (no (unknown) (unknown) Smoking Status: (units (unknown) date) Never smoker unknown) (unknown) (no (unknown) (unknown) Smoking Status: (units (unknown) date) Never smoker unknown) (unknown) (no (unknown) (unknown) Social History (units (unknown) date) (Reviewed 11/15/21 unknown) @ 13:35 by Jacinda Vargas PA-C) (unknown) (no (unknown) (unknown) Source: patient (units (unknown) date) unknown) (unknown) (no (unknown) (unknown) Sprain of left (units (unknown) date) hand unknown) (unknown) (no (unknown) (unknown) Stated complaint: (units (unknown) date) Pain in left eye unknown) (unknown) (no (unknown) (unknown) Substance Use (units ( unknown) date) Type: does not use unknown) (unknown) (no (unknown) (unknown) Surgical History (units (unknown) date) (Reviewed 11/15/21 unknown) @ 13:35 by Jacinda Vargas PA-C) (unknown) (no (unknown) (unknown) Time Seen by (units (u nknown) date) Provider: 11/15/21 unknown) 12:55 (unknown) (no (unknown) (unknown) Upper respiratory (units (unknown) date) infection unknown) () (unknown) (no (unknown) (unknown) Vital Signs (units (un known) date) unknown) (unknown) (no (unknown) (unknown) Vital signs: (units (u nknown) date) unknown) (unknown) (no (unknown) (unknown) Vomiting (units (unkno wn) date) unknown) (unknown) (no (unknown) (unknown) You were evaluated (units (unknown) date) in the ED today for unknown) left-sided eye pain. Your symptoms are (unknown) (no (unknown) (unknown) [LAVENDER] (units (unk nown) date) unknown) (unknown) (no (unknown) (unknown) [NSAIDS (units (unkno wn) date) (NON-STEROIDAL unknown) (unknown) (no (unknown) (unknown) aerosol inhaler (units (unknown) date) (Proventil HFA) unknown) (unknown) (no (unknown) (unknown) albuterol sulfate (units (unknown) date) 90 mcg/actuation 2 unknown) puff INHALATION Q4-6H 11/12/20 11/12/20 (unknown) (no (unknown) (unknown) alcohol intake (units (unknown) date) frequency: 0-2 unknown) drinks per day (unknown) (no (unknown) (unknown) alcohol intake: (units (unknown) date) never unknown) (unknown) (no (unknown) (unknown) amoxicillin (units (un known) date) Allergy unknown) Intermediate RASH Verified 10/28/20 13:50 (unknown) (no (unknown) (unknown) and Denies (units (unk nown) date) orthopnea unknown) (unknown) (no (unknown) (unknown) and Denies urinary (units (unknown) date) urgency unknown) (unknown) (no (unknown) (unknown) and Denies (units (unk nown) date) weakness unknown) (unknown) (no (unknown) (unknown) and below (units (unkn own) date) unknown) (unknown) (no (unknown) (unknown) angustifolia) (units ( unknown) date) unknown) (unknown) (no (unknown) (unknown) appointment for (units (unknown) date) 11/18/2021 to be unknown) evaluated for corrective eyeglasses. Patient (unknown) (no (unknown) (unknown) chills, vision (units (unknown) date) changes, nausea, unknown) vomiting, headache, eye discharge. Patient (unknown) (no (unknown) (unknown) continue to take (units (unknown) date) Tylenol for your unknown) symptoms. Please follow-up and keep your (unknown) (no (unknown) (unknown) corrective lenses (units (unknown) date) since she did not unknown) have the money for it. (unknown) (no (unknown) (unknown) denies history of (units (unknown) date) migraines/headaches unknown) . Patient has a history of cerebral palsy (unknown) (no (unknown) (unknown) depression, Denies (units (unknown) date) homicidal ideation unknown) and Denies suicidal ideation (unknown) (no (unknown) (unknown) diarrhea, Denies (units (unknown) date) nausea and Denies unknown) vomiting (unknown) (no (unknown) (unknown) falls, Denies (units ( unknown) date) lethargy and Denies unknown) weakness (unknown) (no (unknown) (unknown) ferrous sulfate (units (unknown) date) 325 mg (65 mg 325 unknown) mg PO DAILY #30 tab 11/13/20 (unknown) (no (unknown) (unknown) has been reviewed. (units (unknown) date) I agree with unknown) assessment and plan. (unknown) (no (unknown) (unknown) household members: (units (unknown) date) family unknown) (unknown) (no (unknown) (unknown) iron) tablet (units (u nknown) date) unknown) (unknown) (no (unknown) (unknown) lactose AdvReac (units (unknown) date) Intermediate unknown) Diarrhea, Verified 10/28/20 13:50 (unknown) (no (unknown) (unknown) latex Allergy Mild (units (unknown) date) ITCHY RASH Verified unknown) 10/28/20 13:50 (unknown) (no (unknown) (unknown) lavender (units (unkno wn) date) ([place] Allergy unknown) Mild rash Verified 10/28/20 13:50 (unknown) (no (unknown) (unknown) lightheadedness, (units (unknown) date) Denies unknown) palpitations, Denies dyspnea, Denies dyspnea on exertion (unknown) (no (unknown) (unknown) likely due to a (units (unknown) date) ocular migraine. unknown) Your symptoms improved with Tylenol. You may (unknown) (no (unknown) (unknown) loratadine 10 mg (units (unknown) date) tablet 10 mg PO BID unknown) PRN 03/14/19 11/12/20 (unknown) (no (unknown) (unknown) loss of vision, (units (unknown) date) Reports eye pain unknown) and Reports photophobia (unknown) (no (unknown) (unknown) marital status: (units (unknown) date) unmarried,single unknown) (unknown) (no (unknown) (unknown) mg-trimethoprim (units (unknown) date) 160 mg tablet unknown) (unknown) (no (unknown) (unknown) neck pain, Denies (units (unknown) date) sore throat and unknown) Denies throat swelling (unknown) (no (unknown) (unknown) omeprazole 40 mg (units (unknown) date) capsule,delayed 40 unknown) mg PO DAILY #30 cap 06/10/20 (unknown) (no (unknown) (unknown) 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 Return to the ED if (unknown) (no (unknown) (unknown) ophthalmology (units ( unknown) date) appointment on unknown) 11/18/2021. (unknown) (no (unknown) (unknown) other (units (unkno wn) date) complications from unknown) the cerebral palsy. Patient has a ophthalmology (unknown) (no (unknown) (unknown) other. Will treat (units (unknown) date) with Tylenol. Will unknown) reassess. (unknown) (no (unknown) (unknown) oxycodone 5 mg (units (unknown) date) tablet 5 mg PO Q4HR unknown) PRN #30 tab 11/17/20 (unknown) (no (unknown) (unknown) precautions. (units (u nknown) date) Patient verbalized unknown) understanding and also agreed to keep the (unknown) (no (unknown) (unknown) prenat.vits,sergey,mi (units (unknown) date) [id number] 1 tab unknown) PO DAILY #90 tab 04/30/20 (unknown) (no (unknown) (unknown) release (units (unkno wn) date) unknown) (unknown) (no (unknown) (unknown) states that she was (units (unknown) date) diagnosed with unknown) myopia 2 years ago, however was unable to get (unknown) (no (unknown) (unknown) substance use (units ( unknown) date) type: does not use unknown) (unknown) (no (unknown) (unknown) sulfamethoxazole (units (unknown) date) 800 1 tab PO BID unknown) #14 tab 11/20/20 (unknown) (no (unknown) (unknown) upon awakening (units ( unknown) date) yesterday morning. unknown) Patient endorses being extremely photophobic. (unknown) (no (unknown) (unknown) wheezing (units (unkno wn) date) unknown) (unknown) (no (unknown) (unknown) which has made her (units (unknown) date) more prone to unknown) falls, fractures. However, she has not had any (unknown) (no (unknown) (unknown) your symptoms (units ( unknown) date) worsen, you have unknown) changes in vision. Social History date description facility (no date) Never smoked tobacco (finding) [facility] Vital Signs date measurement value units +0000 BMI BMI 45.8 kg/m2 +0000 BP_diastolic BP_diastolic 76 mm[H g] +0000 BP_systolic BP_systolic 156 mm[Hg] +0000 heart_rate heart_rate 100 /min +0000 height_metric height_metric 152.4 cm +0000 height_standard height_standard 60 in +0000 respiration_rate respiration_rate 18 /min +0000 weight_metric weight_metric 48.35 kg +0000 weight_standard weight_standard 106.59 lb
== END 2022-01-31 12:42 | disposition home or self-care (01) ==
LOC: ED 11:47
DX: S50.02XA Contusion of left elbow, initial encounter (principal); W01.190A Fall on same level from slipping, tripping and stumbling with subsequent striking against furniture, initial encounter
CPT/HCPCS: 73080; 73090; 99282; 99283; A9270

== ENCOUNTER 2022-05-08 17:38 | Emergency (ER) | payer MEDICARE, MEDICAID ==
[2022-05-08 18:14] LABS: BASOPHILS % (AUTO) 0.2 %; EOSINOPHILS # (AUTO) 0.1 10^3/uL (0.0-0.7); EOSINOPHILS % (AUTO) 0.7 %; HCT - HEMATOCRIT 37.3 % (37.0-47.0); HGB - HEMOGLOBIN 11.8 g/dL (12.0-16.0); LYMPHOCYTES # (AUTO) 2.3 10^3/uL (1.5-3.5); LYMPHOCYTES % (AUTO) 25.5 %; MEAN CORPUSCULAR HEMOGLOBIN 27.1 pg (27.0-31.0); MEAN CORPUSCULAR HGB CONC 31.6 g/dL (32.0-36.0); MEAN CORPUSCULAR VOLUME 85.7 fL (81.0-99.0); MONOCYTES # (AUTO) 0.6 10^3/uL (0.0-1.0); MONOCYTES % (AUTO) 6.6 %; NEUTROPHILS % (AUTO) 66.8 %; PLT - PLATELET COUNT 459 10^3/uL (130-450); RED BLOOD COUNT 4.35 10^6/uL (4.20-5.40); RED CELL DISTRIBUTION WIDTH 15.9 % (12.0-15.0)
[2022-05-08 18:29] LABS: BILIRUBIN,TOTAL 0.6 mg/dL (0.2-1.0); CALCIUM 9.3 mg/dL (8.5-10.3); CREATININE 0.6 mg/dL (0.4-1.0); POTASSIUM 3.7 mmol/L (3.5-5.0); TOTAL PROTEIN 8.1 g/dL (6.7-8.2)
--- NOTE | 2022-05-08 18:36 | ED Physician Documentation ---
History of Present Illness - Stated complaint Stated Complaint: ABD CRAMPING - Chief complaint Chief Complaint: Abd Pain - History obtained from History obtained from: Patient - History of Present Illness Timing: How many weeks ago Pain level max: 5 Pain level now: 4 - Additonal information Additional information: Patient is a 27-year-old female, 3, para 1 who presents to the emergency department complaining of lower abdominal pain and cramping. No vaginal bleeding. This started about 2 weeks ago. She took a positive test at that time. 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 - Present Medications Home Medications: Ambulatory Orders Medication Instructions Recorded Confirmed Albuterol Sulfate [Proair Hfa 2 puffs INH Q4H PRN 09/08/17 Inhaler] Bcp 09/08/17 Omeprazole 20 mg PO DAILY 09/08/17 - Allergies Allergies/Adverse Reactions: Allergies Allergy/AdvReac Type Severity Reaction Status Date / Time amoxicillin Allergy Rash Verified 05/08/22 17:42 latex Allergy Rash Verified 05/08/22 17:42 lavender (Lavandula Allergy Unknown Verified 05/08/22 17:42 angustifolia) - Social History Does the pt smoke?: No Smoking Status: Never smoker Does the pt drink ETOH?: No Does the pt have substance abuse?: No PD ED PE NORMAL - Vitals Vital signs reviewed: Yes - General General: Alert and oriented X 3, No acute distress - HEENT HEENT: PERRL, Moist mucous membranes - Neck Neck: Supple, no meningeal sign - Cardiac Cardiac: RRR, Strong equal pulses - Respiratory Respiratory: No respiratory distress, Clear bilaterally - Abdomen Abdomen: Soft, Non tender, Non distended - Derm Derm: Warm and dry - Extremities Extremities: No edema - Neuro Neuro: Alert and oriented X 3 - Psych Psych: Normal mood, Normal affect Results - Vitals Vitals: Vital Signs - 24 hr 10/05/08/22 05/08/22 17:42 17:45 19:45 Temperature 36.1 C L 36.5 C 36.5 C Heart Rate 94 94 88 Respiratory 18 18 16 Rate Blood Pressure 145/87 H 145/87 H 128/88 H O2 Saturation 99 99 100 Oxygen O2 Source Room air - Labs Labs: Laboratory Tests 05/08/22 05/08/22 05/08/22 18:00 18:00 18:00 WBC 9.0 RBC 4.35 Hgb 11.8 L Hct 37.3 MCV 85.7 MCH 27.1 MCHC 31.6 L RDW 15.9 H Plt Count 459 H MPV 9.0 Neut # (Auto) 6.0 Lymph # (Auto) 2.3 [place] # (Auto) 0.6 Eos # (Auto) 0.1 Baso # (Auto) 0.0 Absolute Nucleated RBC 0.00 Nucleated RBC % 0.0 Sodium 137 Potassium 3.7 Chloride 101 Carbon Dioxide 25 Anion Gap 11.0 BUN 12 Creatinine 0.6 Estimated GFR (MDRD) 121 Glucose 94 Calcium 9.3 Total Bilirubin 0.6 AST 15 ALT 13 Alkaline Phosphatase 63 Total Protein 8.1 Albumin 4.0 Globulin 4.1 Albumin/Globulin Ratio 1.0 Lipase 27 HCG, Quant < 0.60 Urine Color Urine Clarity Urine pH Ur Specific [place] Urine Protein Urine Glucose (UA) Urine Ketones Urine Occult Blood Urine Nitrite Urine Bilirubin Urine Urobilinogen Ur Leukocyte Esterase Ur Microscopic Review Urine Culture Comments 05/08/22 19:00 WBC RBC Hgb Hct MCV MCH MCHC RDW Plt Count MPV Neut # (Auto) Lymph # (Auto) [place] # (Auto) Eos # (Auto) Baso # (Auto) Absolute Nucleated RBC Nucleated RBC % Sodium Potassium Chloride Carbon Dioxide Anion Gap BUN Creatinine Estimated GFR (MDRD) Glucose Calcium Total Bilirubin AST ALT Alkaline Phosphatase Total Protein Albumin Globulin Albumin/Globulin Ratio Lipase HCG, Quant Urine Color YELLOW Urine Clarity CLEAR Urine pH 5.5 Ur Specific [place] 1.025 Urine Protein NEGATIVE Urine Glucose (UA) NEGATIVE Urine Ketones NEGATIVE Urine Occult Blood TRACE-INTA Urine Nitrite NEGATIVE Urine Bilirubin NEGATIVE Urine Urobilinogen 0.2 (NORMAL) Ur Leukocyte Esterase NEGATIVE Ur Microscopic Review NOT INDICATED Urine Culture Comments NOT INDICATED - Rads (name of study) OB ultrasound Radiology: Final report received, EMP read contemporaneously, See rad report (Normal pelvic ultrasound) PD MEDICAL DECISION MAKING - ED course Complexity details: re-evaluated patient, considered differential, d/w patient, d/w family ED course: Patient here with concern for pelvic pain in early . hCG is less than 0.60. Ultrasound does not show any evidence of ectopic . No acute findings on ultrasound. Does not appear to be at this time. We will have her follow-up with her doctor for further care. Unclear etiology of her pelvic pain. Possible early miscarriage when she had 2 days of vaginal bleeding after her positive test 2 weeks ago? Patient counseled regarding signs and symptoms for which I believe and urgent re-evaluation would be necessary. Patient with good understanding of and agreement to plan and is comfortable going home at this time This document was made in part using voice recognition software. While efforts are made to proofread this document, sound alike and grammatical errors may occur. Departure - Departure Disposition: 01 Home, Self Care Clinical Impression: Pelvic pain in female Instructions: ED Pelvic Pain [facility] Follow-Up: your,doctor in 1 week [Other] Comments: Please follow-up with your doctor for further care. Return if you worsen. Your hormone level today is 0. Your ultrasound does not show a either. The cause of your symptoms is unclear. Please return if you worsen. Discharge Date/Time: 05/08/22 19:47
[2022-05-08 19:09] LABS: BILIRUBIN,URINE NEGATIVE (NEGATIVE); CLARITY,URINE CLEAR (CLEAR); GLUCOSE, URINE (UA) NEGATIVE (NEGATIVE); KETONES,URINE (UA) NEGATIVE (NEGATIVE); LEUKOCYTE ESTERASE, URINE NEGATIVE (NEGATIVE); NITRITE,URINE NEGATIVE (NEGATIVE); OCCULT BLOOD,URINE TRACE-INTA (NEGATIVE); PH,URINE 5.5 PH (5.0-7.5); PROTEIN,URINE NEGATIVE (NEGATIVE); UROBILINOGEN,URINE 0.2 (NORMAL) E.U./dL (NORMAL)
--- NOTE | 2022-05-08 19:24 | Ultrasound Report ---
PROCEDURE: OB First Trimester w/TV (no transvaginal ultrasound was performed, just transabdominal ul trasound) INDICATIONS: pelvic pain, 6 weeks preg. Beta-hCG less than 0.68 OUTSIDE/PRIOR DATING DATA: Last menstrual period (LMP): 04/03/2022. LMP-based estimated date of delivery (MAGAN): 01/08/2023. First dating scan (date and location): 05/08/2022. Estimated date of delivery (MAGAN) from first dating scan: N/A. The below data below was generated using the clinical MAGAN of 01/08/2023 TECHNIQUE: Real-time scanning was performed of the fetus and maternal pelvic organs, with image documentation. Endovaginal scanning was also performed to better visualize the fetus and maternal ovaries. COMPARISON: None FINDINGS: No intrauterine identified. No adnexal identified. Arteries within norm al limits. IMPRESSION: No identification of a . Comment: Recommend correlation with serial beta hCGs and consideration of follow-up ultrasound in 2 w eeks. Reviewed by: Dar Bhatt MD on 05/08/2022 7:23 PM PDT Approved by: Dar Bhatt MD on 05/08/2022 7:23 PM PDT Station ID: [id number]
[2022-05-08 19:47] VITALS: BP 128/88
== END 2022-05-08 19:47 | disposition home or self-care (01) ==
LOC: ED 17:38
DX: R10.2 Pelvic and perineal pain (principal)
CPT/HCPCS: 36415; 80053; 81001; 81003; 83690; 84702; 85025; 87086; 99282; 99284

== ENCOUNTER 2023-04-27 08:54 | Emergency (ER) | payer MEDICARE, MEDICAID ==
[2023-04-27 09:23] VITALS: BP 136/99; O2SAT 98
--- NOTE | 2023-04-27 09:34 | ED Physician Documentation ---
PD HPI ABD PAIN - Stated complaint Stated Complaint: LUMP ON STOMAHC - Chief complaint Chief Complaint: Abd Pain - History obtained from History obtained from: Patient - Additional information Additional information: Patient is a 28-year-old female with a history of 2 prior C-sections and cholecystectomy presenting for evaluation of a mass she has noted in her abdomen for the past 1 week. Patient states that it comes and goes and she has noticed it more when laying down. She denies vomiting but reports having an episode of dry heaves today which she clarifies was actually acid reflux. Has reported normal bowel movements. Denies fever, chest pain or shortness of air. 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 - Present Medications Home Medications: Ambulatory Orders Medication Instructions Recorded Confirmed Albuterol Sulfate [Proair Hfa 2 puffs INH Q4H PRN 09/08/17 Inhaler] Bcp 09/08/17 Omeprazole 20 mg PO DAILY 09/08/17 - Allergies Allergies/Adverse Reactions: Allergies Allergy/AdvReac Type Severity Reaction Status Date / Time amoxicillin Allergy Rash Verified 04/27/23 09:16 latex Allergy Rash Verified 04/27/23 09:16 lavender (Lavandula Allergy Unknown Verified 04/27/23 09:16 angustifolia) - Social History Does the pt smoke?: No Smoking Status: Never smoker Does the pt drink ETOH?: No Does the pt have substance abuse?: No PD ED PE NORMAL - General General: Alert and oriented X 3, No acute distress, Well developed/nourished - HEENT HEENT: Atraumatic - Neck Neck: Supple, no meningeal sign - Cardiac Cardiac: RRR, No murmur - Respiratory Respiratory: No respiratory distress, Clear bilaterally - Abdomen Abdomen: Normal bowel sounds, Soft, Non distended, Other (Ventral wall hernia which is easily reducible, no tenderness, no overlying erythema) - Derm Derm: Warm and dry - Neuro Neuro: Normal speech Results - Vitals Vitals: Vital Signs - 24 hr 04/27/23 09:14 Temperature 36.6 C Heart Rate 107 H Respiratory 16 Rate Blood Pressure 136/99 H O2 Saturation 98 Oxygen O2 Source Room air PD Medical Decision Making - ED course ED course: Patient is a 28-year-old female presenting for evaluation of a mass she has noticed in her abdomen. Her vital signs are stable. On examination she has an easily reducible ventral wall hernia. There is no signs of incarceration or strangulation. She has no tenderness. Patient given information for general surgery for outpatient follow-up to discuss options for treatment. Patient also counseled on strict return precautions for worsening symptoms. Departure - Departure Disposition: 01 Home, Self Care Clinical Impression: Ventral hernia Condition: Stable Instructions: Hernia, Hernia How Develops Follow-Up: Theodore Markham MD [Provider Admit Priv/Credential] - Comments: You have a hernia which is a weakness in the muscle wall of your abdomen. At this time the hernia does not appear to be causing serious issues and is easily reducible. However I would recommend follow-up with a general surgeon to discuss options for treatment of this hernia which could include surgeries. In the meanwhile you want to avoid issues that will make the hernia worse such as straining movements like straining for bowel movements. If you are having constipation please take MiraLAX daily to make sure you are staying regular and not having to strain. Return to the emergency department with any worsening symptoms such as increased pain, vomiting, hernia that will not go down with pressure. Forms: PCP List Discharge Date/Time: 04/27/23 09:44
== END 2023-04-27 09:44 | disposition home or self-care (01) ==
LOC: ED 08:54
DX: K43.9 Ventral hernia without obstruction or gangrene (principal)
CPT/HCPCS: 99282; 99283

== ENCOUNTER 2023-05-08 08:55 | Emergency (ER) | payer MEDICARE, MEDICAID ==
--- NOTE | 2023-05-08 09:31 | XRAY Report ---
PROCEDURE: Foot 3 View LT INDICATIONS: Lft ankle/foot/toe pain s/p fall TECHNIQUE: 3 views of the foot were acquired. COMPARISON: None. FINDINGS: Bones: No fractures or dislocations. No suspicious bony lesions. Soft tissues: No suspicious soft tissue calcifications or masses. IMPRESSION: No visualized acute fracture or dislocation. However, occult injury cannot be excluded. Recommend marj rt interval imaging follow-up in 7-10 days as clinically indicated for additional evaluation. Reviewed by: Lilia Meehan MD on 05/08/2023 9:30 AM PDT Approved by: Lilia Meehan MD on 05/08/2023 9:30 AM PDT Station ID: [id number]
--- NOTE | 2023-05-08 11:55 | ED Physician Documentation ---
PD HPI LOWER EXT INJURY - Stated complaint Stated Complaint: LT FOOT INJ - Chief complaint Chief Complaint: Ext Problem - History obtained from History obtained from: Patient - History of Present Illness PD HPI LOW EXT INJURY LOCATION: Left, Foot Type of injury: Fall, Twist Where injury occurred: Home - Additional information Additional information: 28-year-old female here with left foot pain. She was caring a small dog and accidentally kicked a large toy that her son left on the floor. She presents with generalized foot pain. No skin injury, no swelling or erythema. Injury occurred earlier this morning. She has been able to ambulate though it is uncomfortable. She has not attempted any Tylenol ibuprofen or other treatment. No other injuries. 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 - Present Medications Home Medications: Ambulatory Orders Medication Instructions Recorded Confirmed Albuterol Sulfate [Proair Hfa 2 puffs INH Q4H PRN 09/08/17 Inhaler] Bcp 09/08/17 Omeprazole 20 mg PO DAILY 09/08/17 - Allergies Allergies/Adverse Reactions: Allergies Allergy/AdvReac Type Severity Reaction Status Date / Time amoxicillin Allergy Rash Verified 05/08/23 09:07 latex Allergy Rash Verified 05/08/23 09:07 lavender (Lavandula Allergy Unknown Verified 05/08/23 09:07 angustifolia) - Social History Does the pt smoke?: No Smoking Status: Never smoker Does the pt drink ETOH?: No Does the pt have substance abuse?: No PD ED PE NORMAL - Vitals Vital signs reviewed: Yes - General General: Alert and oriented X 3, No acute distress, Well developed/nourished - HEENT HEENT: Atraumatic, Moist mucous membranes - Derm Derm: Normal color, Warm and dry, Other (Feet are both cool to touch but 2+Pedal pulses and brisk cap refill) - Extremities Extremities: No deformity, Other (generalized ttp of the lt ft, no obvious deormity, swelling, erythema, or bruising. ) - Neuro Neuro: Alert and oriented X 3 - Psych Psych: Normal mood, Normal affect Results - Vitals Vitals: Vital Signs - 24 hr 05/08/23 09:07 Temperature 36.8 C Heart Rate 82 Respiratory 15 Rate Blood Pressure 122/78 O2 Saturation 98 Oxygen O2 Source Room air - Rads (name of study) No standard instances Relevant Findings:: Final report received PD Medical Decision Making - ED course Complexity details: reviewed results, considered differential, d/w patient ED course: . 28-year-old female presented with left foot injury as described in HPI. Her foot exam is generally unremarkable, there are no contusions abrasions obvious swelling or deformity, or skin injury. We did obtain an x-ray which is negative. Patient does have generalized foot tenderness but I have low suspicion for occult fracture at this time. I have recommended supportive measures and advised follow-up with PCP if ongoing pain beyond 1 to 2 weeks. Re turn precautions reviewed. Departure - Departure Disposition: 01 Home, Self Care Clinical Impression: Foot pain, left Condition: Good Instructions: ED RICE Comments: Your xray does not show fracture/break/dislocation. Please use cool compress, light compression, tylenol or ibuprofen as needed. Pain should improve in a few days. If persists beyond 1-2 weeks, please follow up with primary doctor. Forms: PCP List
[2023-05-08 12:00] VITALS: BP 125/72; O2SAT 97
== END 2023-05-08 11:57 | disposition home or self-care (01) ==
LOC: ED 08:55
DX: M79.672 Pain in left foot (principal)
CPT/HCPCS: 99283

== ENCOUNTER 2023-07-22 16:39 | Emergency (ER) | payer MEDICARE, MEDICAID ==
[2023-07-22] MEDS ORDERED: ONDANSETRON ODT 4 MG TABLET TL STA (18:45)
[2023-07-22] MEDS ORDERED: KETOROLAC 60 MG/2 ML VIAL IM STA (18:45)
[2023-07-22 18:50] LABS: BASOPHILS % (AUTO) 0.3 %; EOSINOPHILS # (AUTO) 0.1 10^3/uL (0.0-0.7); EOSINOPHILS % (AUTO) 0.9 %; HCT - HEMATOCRIT 39.1 % (37.0-47.0); HGB - HEMOGLOBIN 11.9 g/dL (12.0-16.0); LYMPHOCYTES % (AUTO) 30.7 %; MEAN CORPUSCULAR HEMOGLOBIN 27.2 pg (27.0-31.0); MEAN CORPUSCULAR HGB CONC 30.4 g/dL (32.0-36.0); MEAN CORPUSCULAR VOLUME 89.3 fL (81.0-99.0); MEAN PLATELET VOLUME 9.8 fL (7.9-10.8); MONOCYTES # (AUTO) 0.7 10^3/uL (0.0-1.0); MONOCYTES % (AUTO) 7.2 %; NEUTROPHILS % (AUTO) 60.7 %; PLT - PLATELET COUNT 436 10^3/uL (130-450); RED BLOOD COUNT 4.38 10^6/uL (4.20-5.40); RED CELL DISTRIBUTION WIDTH 15.9 % (12.0-15.0); WHITE BLOOD COUNT 9.9 x10^3/uL (4.8-10.8)
[2023-07-22 19:04] LABS: ALBUMIN 4.3 g/dL (3.2-5.5)
[2023-07-22 19:09] LABS: POTASSIUM 4.4 mmol/L (3.5-4.5)
[2023-07-22 19:11] LABS: ALBUMIN/GLOBULIN RATIO 1.1 (1.0-2.2); BILIRUBIN,TOTAL 0.3 mg/dL (0.2-1.0); CALCIUM 9.3 mg/dL (8.5-10.3); CREATININE 0.6 mg/dL (0.6-1.3); TOTAL PROTEIN 8.1 g/dL (6.4-8.9)
--- NOTE | 2023-07-22 19:49 | ED Physician Documentation ---
PD HPI ABD PAIN - Stated complaint Stated Complaint: ABD PX - Chief complaint Chief Complaint: Abd Pain - History obtained from History obtained from: Patient - Additional information Additional information: Patient is a 28-year-old female presenting for evaluation of pain around her hernia. She was seen here in the fall and diagnosed with a ventral wall hernia and instructed to follow-up with general surgery which she says her dog ate the discharge papers so she was not able to do so. She says that her dog jumped on her abdomen today and her abdomen has been hurting since around 4:00 around her hernia. She reports mild nausea but no vomiting. She has not taken anything for her pain. She has had a bowel movement today which has been normal for her. She has had 2 prior C-sections and her gallbladder removed. Review of Systems Constitutional: denies: Fever Cardiac: denies: Chest pain / pressure Respiratory: denies: Dyspnea GI: reports: Abdominal Pain, Nausea. 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 - Present Medications Home Medications: Ambulatory Orders Medication Instructions Recorded Confirmed Albuterol Sulfate [Proair Hfa 2 puffs INH Q4H PRN 09/08/17 Inhaler] Bcp 09/08/17 Omeprazole 20 mg PO DAILY 09/08/17 - Allergies Allergies/Adverse Reactions: Allergies Allergy/AdvReac Type Severity Reaction Status Date / Time amoxicillin Allergy Rash Verified 07/22/23 16:53 latex Allergy Rash Verified 07/22/23 16:53 lavender (Lavandula Allergy Unknown Verified 07/22/23 16:53 angustifolia) - Social History Does the pt smoke?: No Smoking Status: Never smoker Does the pt drink ETOH?: No Does the pt have substance abuse?: No - Immunizations Immunizations are current?: Yes PD ED PE NORMAL - General General: Alert and oriented X 3, No acute distress, Well developed/nourished - HEENT HEENT: Atraumatic - Neck Neck: Supple, no meningeal sign - Cardiac Cardiac: RRR - Respiratory Respiratory: No respiratory distress, Clear bilaterally - Abdomen Abdomen: Normal bowel sounds, Soft, Non distended, Other (Ventral wall hernia which is easily reducible, mild right and left lower quadrant tenderness on palpation, no rebound, no guarding) - Derm Derm: Warm and dry Results - Vitals Vitals: Vital Signs - 24 hr 07/22/23 07/22/23 16:50 19:58 Temperature 35.3 C L Heart Rate 100 92 Respiratory 16 18 Rate Blood Pressure 126/90 H 124/96 H O2 Saturation 100 99 Oxygen O2 Source Room air - Labs Labs: Laboratory Tests 07/22/23 07/22/23 07/22/23 18:28 18:45 18:45 WBC 9.9 RBC 4.38 Hgb 11.9 L Hct 39.1 MCV 89.3 MCH 27.2 MCHC 30.4 L RDW 15.9 H Plt Count 436 MPV 9.8 Neut # (Auto) 6.0 Lymph # (Auto) 3.0 [place] # (Auto) 0.7 Eos # (Auto) 0.1 Baso # (Auto) 0.0 Absolute Nucleated RBC 0.00 Nucleated RBC % 0.0 Sodium 139 Potassium 4.4 Chloride 108 Carbon Dioxide 22 Anion Gap 9.0 BUN 7 Creatinine 0.6 Estimated GFR (MDRD) 120 Glucose 81 Calcium 9.3 Total Bilirubin 0.3 AST 24 ALT 14 Alkaline Phosphatase 70 Total Protein 8.1 Albumin 4.3 Globulin 3.8 Albumin/Globulin Ratio 1.1 Lipase 13 Serum HCG, Qual NEGATIVE Urine Color Urine Clarity Urine pH Ur Specific [place] Urine Protein Urine Glucose (UA) Urine Ketones Urine Occult Blood Urine Nitrite Urine Bilirubin Urine Urobilinogen Ur Leukocyte Esterase Ur Microscopic Review Urine Culture Comments Urine HCG, Qual 07/22/23 20:03 WBC RBC Hgb Hct MCV MCH MCHC RDW Plt Count MPV Neut # (Auto) Lymph # (Auto) [place] # (Auto) Eos # (Auto) Baso # (Auto) Absolute Nucleated RBC Nucleated RBC % Sodium Potassium Chloride Carbon Dioxide Anion Gap BUN Creatinine Estimated GFR (MDRD) Glucose Calcium Total Bilirubin AST ALT Alkaline Phosphatase Total Protein Albumin Globulin Albumin/Globulin Ratio Lipase Serum HCG, Qual Urine Color YELLOW Urine Clarity CLEAR Urine pH 6.0 Ur Specific [place] >=1.030 H Urine Protein NEGATIVE Urine Glucose (UA) NEGATIVE Urine Ketones NEGATIVE Urine Occult Blood NEGATIVE Urine Nitrite NEGATIVE Urine Bilirubin NEGATIVE Urine Urobilinogen 0.2 (NORMAL) Ur Leukocyte Esterase NEGATIVE Ur Microscopic Review NOT INDICATED Urine Culture Comments NOT INDICATED Urine HCG, Qual NEGATIVE PD Medical Decision Making - ED course Complexity details: reviewed results, re-evaluated patient, d/w patient ED course: Pt with lower abdominal pain and known hernia after her dog jumped on her. Hernia is reducible. Mild lower abdominal tenderness noted so labs obtained. CBC, chemistries, UA/hcg reviewed without significant findings. Pt feeling better after zofran and toradol and repeat abdominal exam is benign. No signs of SBO, incarceration, strangulation, appendicitis. Pt counseled to follow up with surgery regarding her hernia and is aware of concerning symptoms to return for. 1949 - Patient feeling much better, repeat abdominal exam is benign with no abdominal tenderness. Hernia remains reducible. Departure - Departure Disposition: 01 Home, Self Care Clinical Impression: Ventral hernia without obstruction or gangrene Condition: Stable Instructions: Hernia How Develops Follow-Up: [facility] [Provider Group] Comments: You have been evaluated for abdominal pain. Your labs are reassuring and you are feeling better after an antinausea and anti-inflammatory medication. Your hernia is reducible and at this time does not need emergent repair but I would recommend close follow-up with the general surgeons on [facility] to discuss repair of your hernia. If at anytime you have any recurrence of your pain, nausea or vomiting or any new concerns please consider return to the emergency department. Forms: PCP List Discharge Date/Time: 07/22/23 20:55
[2023-07-22 20:01] VITALS: BP 124/96; O2SAT 99
[2023-07-22 20:15] LABS: BILIRUBIN,URINE NEGATIVE (NEGATIVE); GLUCOSE, URINE (UA) NEGATIVE (NEGATIVE); KETONES,URINE (UA) NEGATIVE (NEGATIVE); LEUKOCYTE ESTERASE, URINE NEGATIVE (NEGATIVE); NITRITE,URINE NEGATIVE (NEGATIVE); OCCULT BLOOD,URINE NEGATIVE (NEGATIVE); PROTEIN,URINE NEGATIVE (NEGATIVE); UROBILINOGEN,URINE 0.2 (NORMAL) E.U./dL (NORMAL)
[2023-07-22 20:16] LABS: HCG,QUALITATIVE BLOOD NEGATIVE
[2023-07-22 20:18] LABS: CLARITY,URINE CLEAR (CLEAR); HCG UR QUAL NEGATIVE
== END 2023-07-22 20:55 | disposition home or self-care (01) ==
LOC: ED 16:39
DX: K43.9 Ventral hernia without obstruction or gangrene (principal)
CPT/HCPCS: 36415; 80053; 81003; 81025; 83690; 84703; 85025; 96372; 99283; 99284; Q0162; 81001; 87086

== ENCOUNTER 2023-07-24 18:43 | Emergency (ER) | payer MEDICARE, MEDICAID ==
[2023-07-24 19:07] LABS: BASOPHILS % (AUTO) 0.3 %; EOSINOPHILS # (AUTO) 0.1 10^3/uL (0.0-0.7); EOSINOPHILS % (AUTO) 0.8 %; HCT - HEMATOCRIT 34.4 % (37.0-47.0); HGB - HEMOGLOBIN 10.8 g/dL (12.0-16.0); LYMPHOCYTES # (AUTO) 2.8 10^3/uL (1.5-3.5); LYMPHOCYTES % (AUTO) 25.3 %; MEAN CORPUSCULAR HEMOGLOBIN 27.3 pg (27.0-31.0); MEAN CORPUSCULAR HGB CONC 31.4 g/dL (32.0-36.0); MEAN CORPUSCULAR VOLUME 86.9 fL (81.0-99.0); MEAN PLATELET VOLUME 9.1 fL (7.9-10.8); MONOCYTES # (AUTO) 0.8 10^3/uL (0.0-1.0); MONOCYTES % (AUTO) 6.9 %; NEUTROPHILS # (AUTO) 7.3 10^3/uL (1.5-6.6); NEUTROPHILS % (AUTO) 66.4 %; PLT - PLATELET COUNT 461 10^3/uL (130-450); RED BLOOD COUNT 3.96 10^6/uL (4.20-5.40); RED CELL DISTRIBUTION WIDTH 15.8 % (12.0-15.0)
--- NOTE | 2023-07-24 19:09 | ED Physician Documentation ---
PD HPI ABD PAIN - Stated complaint Stated Complaint: PELVIC PX/N/V/D - Chief complaint Chief Complaint: Abd Pain - History obtained from History obtained from: Patient, Family - Additional information Additional information: 28-year-old woman with a history of asthma, 2 C-sections and cholecystectomy has had ongoing mid abdominal "hernia" pain for about a month. 3 days ago she saw my partner for this with negative workup at that time although was not imaged. Today she developed more severe right pelvic pain associate with nausea and diarrhea. Went to the walk-in clinic and was referred here for further evaluation and treatment. PD PAST MEDICAL HISTORY - Past Medical History Past Medical History: Yes Cardiovascular: None Respiratory: None Endocrine/Autoimmune: None GI: GERD - Past Surgical History Past Surgical History: Yes General: Cholecystectomy /[employer]: section - Present Medications Home Medications: Ambulatory Orders Medication Instructions Recorded Confirmed Albuterol Sulfate [Proair Hfa 2 puffs INH Q4H PRN 09/08/17 Inhaler] Bcp 09/08/17 Omeprazole 20 mg PO DAILY 09/08/17 HYDROcod/ACETAM 5/325 [[place] 5/325] 1 - 2 tab PO Q6H PRN #15 tablet 07/24/23 - Allergies Allergies/Adverse Reactions: Allergies Allergy/AdvReac Type Severity Reaction Status Date / Time amoxicillin Allergy Rash Verified 07/22/23 16:53 latex Allergy Rash Verified 07/22/23 16:53 lavender (Lavandula Allergy Unknown Verified 07/22/23 16:53 angustifolia) - Social History Does the pt smoke?: No Smoking Status: Never smoker Does the pt drink ETOH?: No Does the pt have substance abuse?: No - Immunizations Immunizations are current?: Yes PD ED PE NORMAL - Vitals Vital signs reviewed: Yes - General General: Alert and oriented X 3, No acute distress - Abdomen Abdomen: Other (There is a nonspecific large lump in the right periumbilical area that could be a hernia. It is not tender. No overlying skin changes. Could also be a lipoma. She is more tender in the right greater than left lower quadrants.) - Neuro Neuro: Alert and oriented X 3 Results - Vitals Vitals: Vital Signs - 24 hr 07/24/23 07/24/23 18:48 19:03 Temperature 36.7 C Heart Rate 109 H 99 Respiratory 18 20 Rate Blood Pressure 145/95 H 139/87 H O2 Saturation 99 99 Oxygen O2 Source Room air - Labs Labs: Laboratory Tests 07/24/23 07/24/23 07/24/23 18:56 18:56 20:08 WBC 11.0 H RBC 3.96 L Hgb 10.8 L Hct 34.4 L MCV 86.9 MCH 27.3 MCHC 31.4 L RDW 15.8 H Plt Count 461 H MPV 9.1 Neut # (Auto) 7.3 H Lymph # (Auto) 2.8 [place] # (Auto) 0.8 Eos # (Auto) 0.1 Baso # (Auto) 0.0 Absolute Nucleated RBC 0.00 Nucleated RBC % 0.0 Sodium 138 Potassium 3.8 Chloride 105 Carbon Dioxide 26 Anion Gap 7.0 BUN 8 Creatinine 0.5 L Estimated GFR (MDRD) 148 Glucose 87 Calcium 9.3 Total Bilirubin 0.3 AST 13 ALT 13 Alkaline Phosphatase 75 Total Protein 7.4 Albumin 4.2 Globulin 3.2 Albumin/Globulin Ratio 1.3 Lipase 15 Urine Color YELLOW Urine Clarity CLEAR Urine pH 6.0 Ur Specific [place] 1.025 Urine Protein NEGATIVE Urine Glucose (UA) NEGATIVE Urine Ketones NEGATIVE Urine Occult Blood NEGATIVE Urine Nitrite NEGATIVE Urine Bilirubin NEGATIVE Urine Urobilinogen 0.2 (NORMAL) Ur Leukocyte Esterase NEGATIVE Ur Microscopic Review NOT INDICATED Urine Culture Comments NOT INDICATED Urine HCG, Qual NEGATIVE - Rads (name of study) CT a/p Relevant Findings:: Final report received, EMP independent interpretation of test PD Medical Decision Making - ED course ED course: 28-year-old woman presents with acute lower abdominal pain, but in the setting of a GI illness with nausea and diarrhea. She has this known abdominal wall hernia and is seeing Dr. Richter it sounds like later in the month. Given the tenderness a workup was done and she had a CBC showing mild anemia with mild elevation white count and a normal CMP and negative urinalysis and test. CT scanning was done and was negative with the exception of the thin neck hernia with a moderate degree of edema and congested omentum. Case was discussed by phone with our on-call surgeon, Dr. Markham who did not feel there was a surgical emergency since there is no bowel in the hernia. She also noted that for an elective surgery the patient would probably need to lose some weight as her current BMI is 51.9. I spent quite some time discussing this with the patient and she was appreciative of some dietary tips and plans to start her diet even before seeing the surgeon later in the month. Departure - Departure Disposition: 01 Home, Self Care Clinical Impression: Abdominal wall hernia Abdominal pain Qualifiers: Abdominal location: lower abdomen, unspecified Qualified Code(s): R10.30 - Lower abdominal pain, unspecified Condition: Good Record reviewed to determine appropriate education?: Yes Instructions: ED Abdominal Pain Female Non-Specific Abdominal Pain Prescriptions: HYDROcod/ACETAM 5/325 [[place] 5/325] 1 - 2 tab PO Q6H PRN #15 tablet PRN Reason: Pain Comments: I sent your prescription to [facility] in [place]. Followup with the surgeon as scheduled. Return if worse. I am prescribing a short course of narcotic pain medication for you. These are potentially dangerous and addictive medications that should be used carefully. These medications may constipate you. Take an dmeu-skv-vtxklhd stool softener (docusate) twice daily with plenty of water while taking these medications. If you go 24 hours without a bowel movement, take uiam-zqy-fquemyy miralax, per package instructions. Do not drink or drive while taking these medications. If you received narcotic or sedating medications while in the emergency department, do not drive for 24 hours. Store this medication in a safe, secure place and out of reach of children. It is a violation of federal law to give or sell this medication to another person or to use in a manner other than prescribed. The ED will not refill narcotic prescriptions, including prescriptions lost or stolen. To dispose of unwanted medications: 1. [facility] provides a drop box for medication in pill form only (no liquids) 8:00 am to 4:30 p.m. Monday-Monday in the lobby of the [facility], [address] [place] [address]. Empty pills into ziplock bag before disposal. Call [phone] for information. 2.[employer] is a free service available to all [facility] residents. Go to [email or web address] Note that many narcotic pain relievers also contain Tylenol/acetaminophen. Please ensure that your total dose of acetaminophen from all sources does not exceed 3 g (3000 mg) per day. Forms: PCP List
[2023-07-24 19:22] LABS: ALBUMIN 4.2 g/dL (3.2-5.5); ALBUMIN/GLOBULIN RATIO 1.3 (1.0-2.2); BILIRUBIN,TOTAL 0.3 mg/dL (0.2-1.0); CALCIUM 9.3 mg/dL (8.5-10.3); CREATININE 0.5 mg/dL (0.6-1.3); POTASSIUM 3.8 mmol/L (3.5-4.5); TOTAL PROTEIN 7.4 g/dL (6.4-8.9)
[2023-07-24] MEDS: HYDROmorphone 1 MG/ML CARPUJECT IVP STA ×2 (19:23→21:45)
[2023-07-24] MEDS: ONDANSETRON 4 MG/2 ML VIAL IVP STA (19:23)
[2023-07-24 20:16] LABS: BILIRUBIN,URINE NEGATIVE (NEGATIVE); GLUCOSE, URINE (UA) NEGATIVE (NEGATIVE); KETONES,URINE (UA) NEGATIVE (NEGATIVE); LEUKOCYTE ESTERASE, URINE NEGATIVE (NEGATIVE); NITRITE,URINE NEGATIVE (NEGATIVE); OCCULT BLOOD,URINE NEGATIVE (NEGATIVE); PROTEIN,URINE NEGATIVE (NEGATIVE); UROBILINOGEN,URINE 0.2 (NORMAL) E.U./dL (NORMAL)
[2023-07-24 20:18] LABS: CLARITY,URINE CLEAR (CLEAR); HCG UR QUAL NEGATIVE
[2023-07-24] MEDS: iohexoL-300 100 ML VIAL IVP ONE (20:33)
--- NOTE | 2023-07-24 21:05 | CT Report ---
PROCEDURE: Abdomen/Pelvis W INDICATIONS: rlq pain, iv only CONTRAST: 100mL Omni 300 TECHNIQUE: After the administration of intravenous contrast, a CT scan of the abdomen and pelvis was performed. Images were recorded and evaluated at appropriate window settings. Reformats: coronal and sagittal. F or radiation dose reduction, the following was used: automated exposure control, adjustment of mA and /or kV according to patient size. COMPARISON: None. FINDINGS: Image quality: Diagnostic Lower chest: Low lung volumes. Mildly patulous distal esophagus. Liver: Unremarkable. No suspicious focal lesion. Gallbladder and biliary system: Absent, nondilated Pancreas: No ductal dilation Spleen: Nonenlarged Adrenals: No discrete nodule Kidneys: No solid mass or hydronephrosis Vessels and lymph nodes: The main portal vein is patent. No abdominal aortic aneurysm. No pathologic lymph nodes by size criteria. Bowel and peritoneum: No evidence of small bowel obstruction. No pathologic ascites or drainable absc ess. There is fecal material in the terminal ileum. The appendix appears nondilated Body wall: There is a suspected neck periumbilical ventral hernia containing moderate edema and proba maryjo congested omentum. The neck measures about 9 mm. Pelvis: Reproductive organs appear unremarkable limited CT evaluation. The bladder is underdistended. Bones: No acute or suspicious osseous findings. IMPRESSION: No small bowel obstruction. Nondilated appendix. Right periumbilical thin neck ventral hernia containing moderate degree of edema and congested omentu m. The neck measures about 9 mm. Other findings as above. Reviewed by: Dom Martinez MD on 07/24/2023 9:04 PM [facility] Approved by: Dom Martinez MD on 07/24/2023 9:04 PM PST Station ID: [id number]
[2023-07-24 22:00] VITALS: BP 131/88; O2SAT 98
== END 2023-07-24 21:51 | disposition home or self-care (01) ==
LOC: ED 18:43
DX: R10.30 Lower abdominal pain, unspecified (principal)
CPT/HCPCS: 36415; 74177; 80053; 81003; 81025; 83690; 85025; 96374; 96376; 99284; J1170; 81001; 87086

== ENCOUNTER 2023-08-09 08:58 | Emergency (ER) | payer MEDICARE, MEDICAID ==
[2023-08-09 09:06] VITALS: BP 147/96; O2SAT 100
--- NOTE | 2023-08-09 09:21 | XRAY Report ---
PROCEDURE: Chest 1V INDICATIONS: cough/congestion TECHNIQUE: One view of the chest was acquired. COMPARISON: None. FINDINGS: Surgical changes and devices: None. Lungs and pleura: No pleural effusions or pneumothorax. Lungs are clear. Mediastinum: Mediastinal contours appear normal. Heart size is normal. Bones and chest wall: No suspicious bony lesions. Overlying soft tissues appear unremarkable. IMPRESSION: No acute cardiopulmonary process. Reviewed by: Lilia Meehan MD on 08/09/2023 9:20 AM [facility] Approved by: Lilia Meehan MD on 08/09/2023 9:20 AM [facility] Station ID: [id number]
[2023-08-09] MEDS ORDERED: IPRATROPIUM/ALBUTEROL 3 ML NEB INH STA (10:44)
[2023-08-09] MEDS ORDERED: predniSONE 20 MG TABLET PO STA (10:44)
[2023-08-09 11:01] LABS: B. PARAPERTUSSIS- RESP PCR PAN NOT DETECTED; B. PERTUSSIS- RESP PCR PANEL NOT DETECTED; C. PNEUMONIAE- RESP PCR PANEL NOT DETECTED; CORONAVIRUS 229E-RESP PCR NOT DETECTED; CORONAVIRUS HKU1-RESP PCR NOT DETECTED; CORONAVIRUS NL63-RESP PCR NOT DETECTED; CORONAVIRUS OC43-RESP PCR NOT DETECTED; HUMAN METAPNEUMOVIRUS NOT DETECTED; INFLUENZA A- RESP PCR PANEL NOT DETECTED; INFLUENZA B - RESP PCR PANEL NOT DETECTED; M. PNEUMONIAE- RESP PCR PANEL NOT DETECTED; PARAINFLUENZA VIRUS 1 NOT DETECTED; PARAINFLUENZA VIRUS 2 NOT DETECTED; PARAINFLUENZA VIRUS 3 NOT DETECTED; PARAINFLUENZA VIRUS 4 NOT DETECTED; RHINOVIRUS/ENTEROVIRUS NOT DETECTED; RSV- RESP PCR PANEL NOT DETECTED; SARS-CoV-2 -RESP PCR PANEL NOT DETECTED
--- NOTE | 2023-08-09 11:31 | ED Physician Documentation ---
PD HPI URI - Stated complaint Stated Complaint: COUGH,DIARRHEA - Chief complaint Chief Complaint: Resp - History obtained from History obtained from: Patient - Additional information Additional information: Patient is a 28-year-old female with a history of asthma presenting for evaluation of cough, congestion, chest tightness at times for the past week. 2 younger children at home have similar symptoms and being treated for URIs with inhalers and steroids. She reports taking a home COVID test which has been negative. No fevers. Cough is productive sometimes of yellow sputum. No blood. No chest pain. She has been using her inhaler. No leg swelling or pain. 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 - Present Medications Home Medications: Ambulatory Orders Medication Instructions Recorded Confirmed Albuterol Sulfate [Proair Hfa 2 puffs INH Q4H PRN 09/08/17 Inhaler] Bcp 09/08/17 Omeprazole 20 mg PO DAILY 09/08/17 HYDROcod/ACETAM 5/325 [[place] 5/325] 1 - 2 tab PO Q6H PRN #15 tablet 07/24/23 Albuterol Sulf [Ventolin Hfa 1 - 2 puffs INH Q4HR PRN #1 each 08/09/23 Inhaler] predniSONE [Deltasone] 60 mg PO DAILY 4 Days #12 tablet 08/09/23 - Allergies Allergies/Adverse Reactions: Allergies Allergy/AdvReac Type Severity Reaction Status Date / Time amoxicillin Allergy Rash Verified 08/09/23 09:06 latex Allergy Rash Verified 08/09/23 09:06 lavender (Lavandula Allergy Unknown Verified 08/09/23 09:06 angustifolia) - Social History Does the pt smoke?: No Smoking Status: Never smoker Does the pt drink ETOH?: No Does the pt have substance abuse?: No - Immunizations Immunizations are current?: Yes - POLST Patient has POLST: No PD ED PE NORMAL - General General: Alert and oriented X 3, No acute distress, Well developed/nourished - HEENT HEENT: Atraumatic, Moist mucous membranes, Pharynx benign - Neck Neck: Supple, no meningeal sign - Cardiac Cardiac: RRR - Respiratory Respiratory: No respiratory distress, Other (Mild expiratory wheezing) - Derm Derm: Warm and dry - Extremities Extremities: No edema, No calf tenderness / cord - Neuro Neuro: Normal speech Results - Vitals Vitals: Vital Signs - 24 hr 08/09/23 08/09/23 09:03 11:10 Temperature 36.4 C L Heart Rate 97 87 Respiratory 20 19 Rate Blood Pressure 147/96 H O2 Saturation 100 Oxygen O2 Source Room air - Labs Labs: Laboratory Tests 08/09/23 09:05 Nasal Adenovirus (PCR) NOT DETECTED Nasal B. parapertussis DNA (PCR) NOT DETECTED Nasal Coronavir 229E PCR NOT DETECTED Nasal Coronavir HKU1 PCR NOT DETECTED Nasal Coronavir NL63 PCR NOT DETECTED Nasal Coronavir OC43 PCR NOT DETECTED Nasal Enterovir/Rhinovir PCR NOT DETECTED Nasal Influenza B PCR NOT DETECTED Nasal Influenza A PCR NOT DETECTED Nasal Parainfluen 1 PCR NOT DETECTED Nasal Parainfluen 2 PCR NOT DETECTED Nasal Parainfluen 3 PCR NOT DETECTED Nasal Parainfluen 4 PCR NOT DETECTED Nasal RSV (PCR) NOT DETECTED Nasal B.pertussis DNA PCR NOT DETECTED Nasal C.pneumoniae (PCR) NOT DETECTED Sebastien Human Metapneumo PCR NOT DETECTED Nasal M.pneumoniae (PCR) NOT DETECTED Nasal SARS-CoV-2 (PCR) NOT DETECTED PD Medical Decision Making - ED course Complexity details: reviewed results, re-evaluated patient, d/w patient ED course: Patient with URI symptoms for the past 1 week. Kids at home is sick with similar symptoms. Vital signs are stable. Mild wheezing noted on exam. Patient feeling better after DuoNeb treatment. Also started on prednisone given her history of asthma. Chest x-ray which I reviewed is negative for pneumonia. Respiratory swab is negative for the tested viruses. Patient counseled regarding treatment plan. Discussed concerning symptoms to return for. No indication for antibiotics at this time. Departure - Departure Disposition: 01 Home, Self Care Clinical Impression: Upper respiratory tract infection, Asthma exacerbation Condition: Stable Instructions: ED Bronchitis Asthmatic Prescriptions: Albuterol Sulf [Ventolin Hfa Inhaler] 1 - 2 puffs INH Q4HR PRN #1 each PRN Reason: Shortness Of Air/Wheezing predniSONE [Deltasone] 60 mg PO DAILY 4 Days #12 tablet Comments: Your chest x-ray does not show signs of pneumonia. Your respiratory swab is negative for the tested viruses including COVID, RSV and influenza. Your wheezing on initial exam which has improved after breathing treatment. Your symptoms are likely related to a viral infection as your children also had similar symptoms. This virus is likely triggered your asthma. I have sent a prescription for steroids as well as an albuterol inhaler to [facility] in [place]. Your next dose of the steroid which is called prednisone is not due until tomorrow morning. Return to the emergency department with any worsening symptoms. Forms: PCP List Discharge Date/Time: 08/09/23 11:41
== END 2023-08-09 11:41 | disposition home or self-care (01) ==
LOC: ED 08:58
DX: J06.9 Acute upper respiratory infection, unspecified (principal); J45.901 Unspecified asthma with (acute) exacerbation; Z11.52 Encounter for screening for COVID-19
CPT/HCPCS: 71045; 87633; 94640; 99284; J7512